=== PATIENT | female | born 1995 | race Caucasian/White ===

== ENCOUNTER → 2017-11-18 16:37 | Outpatient (CLI) | payer SELFPAY ==
[2017-11-18 17:40] LABS: Hematocrit 40.5 % (37-47); Hemoglobin 13.7 g/dl (12.0-15.0); Mean Corp Hgb Conc 33.8 g/gl (32-36); Mean Corpuscular Hgb 30.3 pg (27.0-32.0); Mean Corpuscular Volume 89.6 fL (81-99); Mean Platelet Vol. 10.8 fl (6.2-12.0); Platelet Count 252 K/mm3 (150-450); RBC Distribution Width CV 12.2 % (11.6-14.6); RBC Distribution Width SD 39.9 fl (35.1-43.9); Red Blood Count 4.52 M/mm3 (4.2-5.4); Scan Indicated on CBC? Y/N NO; White Blood Count 4.2 K/mm3 (4.4-11.0)
[2017-11-18 18:06] LABS: ALB/GLOB Ratio 1.2 RATIO (0.9-2.4); AST(SGOT) 15 U/L (15-37); Alanine Aminotransfer ALT/SGPT 18 U/L (13-56); Albumin, Serum 4.3 g/dL (3.2-5.0); Alkaline Phosphatase 107 U/L (45-117); Anion Gap 6 (5-15); BUN 24 mg/dL (7-18); BUN/Creat Ratio 28.4 RATIO (10-20); Calcium,Total 9.2 mg/dL (8.5-10.1); Chloride 106 mmol/L (98-107); Creatinine, Serum 0.85 mg/dL (0.55-1.02); EST Glomerular Filtration Rate 90 mL/min (>60); Est Glom Filt Rate - Afr Amer 108 mL/min (>60); Globulin 3.5 g/dL (2.2-4.2); Glucose 86 mg/dL (74-106); Potassium 3.8 mmol/L (3.5-5.1); Protein, Total 7.8 g/dL (6.4-8.2); Sodium Level 139 mmol/L (136-145)
[2017-11-22 11:28] LABS: KEPPRA (LEVETIRACETAM) 32.7 ug/mL (10.0-40.0)
== END ==
PROVIDERS: Visit Provider Nurse Practitioner Acute Care
DX: G40.909 Epilepsy, unspecified, not intractable, without status epilepticus (principal)
CPT/HCPCS: 36415; 80053; 80177; 85027

== ENCOUNTER → 2018-04-28 16:22 | Outpatient (CLI) | payer SELFPAY ==
[2018-05-05 12:10] LABS: HPV Reflexed? NOT INDICATED
== END ==
PROVIDERS: Visit Provider Obstetrics & Gynecology
DX: Z12.4 Encounter for screening for malignant neoplasm of cervix (principal)
CPT/HCPCS: 88175; G0145

== ENCOUNTER 2018-07-30 20:49 | Emergency (ER) | payer OTHER, SELFPAY ==
[2018-07-30 20:50] VITALS: BP 114/72; PULSE 94; RESP 16; TEMP 36.6; O2SAT 100; BMI 22.4
[2018-07-30] MEDS: Mag Hydrox/Al Hydrox/Simeth 30 ML UDC PO (21:21)
[2018-07-30] MEDS: 0.9% Normal Saline 1,000 ML 1000 ML IV (21:32)
[2018-07-30 21:40] LABS: Bacteria 0 SEEN /hpf (None Seen); Mucous, Urine 0 SEEN /hpf (<or=2+); Red Blood Cells-Urine 0 SEEN /hpf (0-5); White Blood Cells 0 SEEN /hpf (0-5)
[2018-07-30 21:43] LABS: Absolute Lymphocyte Count 1.38 X10^3/ul (0.83-4.51); Absolute Neutrophil Count 3.9 X10^3/uL (2.0-7.7); Basophil# 0.01 X10^3/uL; Basophil% 0.2 % (0-1); Color, Urine Yellow (Yellow); Eosinophil# 0.02 X10^3/uL; Eosinophils% 0.3 % (0-5); Glucose, Dipstick Normal (Normal); Hematocrit 43.8 % (37-47); Hemoglobin 14.7 g/dl (12.0-15.0); Ketone-Dipstick 5 mg/dl (Negative); Leukocyte Esterase-Dipstick Negative /ul (Negative); Lymphocyte # 1.38 X10^3/ul (4.0); Lymphocyte % 23.9 % (19-41); Mean Corp Hgb Conc 33.6 g/gl (32-36); Mean Corpuscular Hgb 29.9 pg (27.0-32.0); Mean Corpuscular Volume 89.2 fL (81-99); Mean Platelet Vol. 9.6 fl (6.2-12.0); Monocyte# 0.43 X10^3/uL; Monocyte% 7.5 % (0-10); Neutrophil # 3.92 X10^3/uL (2.7-7.7); Neutrophil % 67.9 % (47-70); Nitrite-Dipstick Negative (Negative); Occult Blood-Urine Negative /ul (Negative); Platelet Count 272 K/mm3 (150-450); Protein-Dipstick Negative (Negative); RBC Distribution Width CV 12.4 % (11.6-14.6); RBC Distribution Width SD 39.7 fl (35.1-43.9); Red Blood Count 4.91 M/mm3 (4.2-5.4); Specific Gravity, Urine 1.025 (1.002-1.030); Urine Bilirubin Dipstick Negative (Negative); Urine Clarity Clear (Clear); Urine Urobilinogen Normal (Normal); White Blood Count 5.8 K/mm3 (4.4-11.0)
[2018-07-30 21:44] LABS: POSITIVE COUNT NO; POSITIVE DIFFERENTIAL NO; POSITIVE MORPHOLOGY NO
[2018-07-30 21:47] LABS: Internal QC Validated? YES +Cl - CLEAR BKGD; Pregnancy, Urine Negative Negative
[2018-07-30 21:50] LABS: Squamous Epithelial Cells - UA 0-5 SEEN /hpf (5-10)
[2018-07-30 22:00] LABS: ALB/GLOB Ratio 1.1 RATIO (0.9-2.4); AST(SGOT) 29 U/L (15-37); Alanine Aminotransfer ALT/SGPT 64 U/L (13-56); Albumin, Serum 4.4 g/dL (3.2-5.0); Alkaline Phosphatase 114 U/L (45-117); Anion Gap 9 (5-15); BUN 23 mg/dL (7-18); BUN/Creat Ratio 22.5 RATIO (10-20); Calcium,Total 9.6 mg/dL (8.5-10.1); Chloride 105 mmol/L (98-107); Creatinine, Serum 1.02 mg/dL (0.55-1.02); EST Glomerular Filtration Rate 72 mL/min (>60); Est Glom Filt Rate - Afr Amer 87 mL/min (>60); Estimated Creatinine Clearance 71.56 ml/min; Globulin 3.9 g/dL (2.2-4.2); Glucose 84 mg/dL (74-106); Lipase 138 U/L (73-393); Potassium 3.7 mmol/L (3.5-5.1); Protein, Total 8.3 g/dL (6.4-8.2); Sodium Level 141 mmol/L (136-145)
--- NOTE | 2018-07-30 22:14 | ED.DCSUM_ITS ---
- ER Visit Summary Date of Service: 07/30/18 Chief Complaint: Abdominal pain History of Present Illness: The patient is a 23 F presenting for evaluation secondary to abdominal pain. Patient reports over the course last 4 days she has been dealing with abdominal pain. She reports that it mainly is epigastric. It is not necessarily worse by eating, but she has had a decreased appetite. She reports that heating pad did some what alleviated. She denies any presence of fevers. She endorses some nausea no vomiting, as well as some loose stools associated with this. She denies any melena. Patient denies any urinary signs or symptoms. Last menstrual cycle was on 18 July. She is never had any p rior similar episodes in the past, she denies any frequent alcohol use, or frequent NSAID use. Review of systems otherwise negative. Physical Examination: Vital signs are within normal limits, patient is afebrile. General: Patient is well-nourished well-developed and in no acute distress. Head: Normocephalic, atraumatic Eyes: Pupils equal round and reactive bilaterally, extra occular motion intact bialterally ENT: Moist mucous membranes Neck: Supple, no lymphadenopathy, no JVD, no meningismus CVS: Heart regular rate and rhythm, no murmurs, rubs or gallops, radial pulses 2+ bilaterally Resp: Respirations nondistressed, lung sounds clear bilaterally Abdomen: Soft, epigastric tenderness to palpation no guarding no rebound, nondistended, no palpable masses, normal bowel sounds Back: Nontender Extremities: Nontender, atraumatic, active full range of motion, no peripheral edema Skin: warm, no rashes, no petechia Neuro: Alert and oriented x 4, CN 2-12 intact, no lateralizing neurological defecits Psyc: Normal affect Test Results: CBC, CMP, lipase, urinalysis and hCG to be unremarkable. Emergency Department Course and Treatment: Patient presented with epigastric pain. She has normal vital signs and relatively benign exam. Workup rules out to the likelihood of pancreatitis, cholecystitis, and patient's physical exam does not seem consistent with perforated ulcer. She was given a GI cocktail and had some dramatic improvement. At this point patient's presentation is likely consistent with gastritis versus ulcer. She will be placed on a course of omeprazole and Carafate and will be instructed to follow-up with primary care. Disposition: Discharge Impression: 1. Gastritis This note was generated with [employer] dictation software. It may contain incorrect words, spelling, and punctuation that were not noted in review of the chart prior to signing ED Disposition - Plan for ED Patient: Disposition: Home or Assisted Living Chief Complaint: Abd Pain Diagnosis: Gastritis Instructions: ED PUD Vs Gastritis Prescriptions: Esomeprazole Mag Trihydrate [Nexium] 40 mg PO DAILY #30 cap Sucralfate [Carafate] 1 gm PO 4X/DAY #120 tab Referrals: Parish Abel DO [NON CLINICAL AFFILIATE] - 1-2 Weeks
[2018-07-30 22:52] VITALS: PULSE 90; RESP 15; O2SAT 99
== END 2018-07-30 22:53 | disposition home or self-care (01) ==
PROVIDERS: Emergency Provider Emergency Medicine
DX: K29.70 Gastritis, unspecified, without bleeding (principal); G40.909 Epilepsy, unspecified, not intractable, without status epilepticus; J45.909 Unspecified asthma, uncomplicated; Z79.899 Other long term (current) drug therapy
CPT/HCPCS: 80053; 81001; 81025; 83690; 85025; 96360; 99284; J7030; A4216

== ENCOUNTER → 2018-11-01 15:18 | Outpatient (CLI) | payer OTHER, SELFPAY ==
[2018-11-01 17:30] LABS: Chlamydia Trachomatis by PCR Negative (Negative); Neisserai gonorrhoeae by PCR Negative (Negative)
[2018-11-01 17:31] LABS: Probe Check PASS; Sample Adequacy Control PASS; Specimen Processing Control PASS
== END ==
LOC: LABSPEC 15:19
PROVIDERS: Visit Provider Obstetrics & Gynecology
DX: Z11.3 Encounter for screening for infections with a predominantly sexual mode of transmission (principal)
CPT/HCPCS: 87491; 87591

== ENCOUNTER 2018-11-07 19:19 | Emergency (ER) | payer SELFPAY ==
[2018-11-07 19:21] VITALS: BP 110/60; PULSE 88; RESP 18; TEMP 36.8; O2SAT 100; BMI 22.7
--- NOTE | 2018-11-07 19:33 | ED.VISSUMM ---
- ER Visit Summary Date of Service: 11/07/18 Chief Complaint: Nausea vomiting History of Present Illness: The patient is a 23 F with nausea and vomiting since early this morning. She is 7 weeks . She has not had any medications for home. She has no fever or chills. She has no diarrhea or constipation. She has no vaginal bleeding. She has no abdominal pain or back pain. Physical Examination: Patient does not appear in significant distress she appears nontoxic. She has lightly dry mucous membranes. She has clear lungs bilaterally soft and nontender abdomen no CVA tenderness. She has normal skin examination Emergency Department Course and Treatment: 1 L LR, 1 L D5 half-normal saline, Phenergan and Benadryl were given. Urinalysis and basic metabolic panel were obtained. When patient improves we will discharge with prescription for Phenergan. She is told to follow-up with her [employer] doctor Disposition: Discharge stable condition Impression: [Hyperemesis gravidarum] This note was generated with [employer] dictation software. It may contain incorrect words, spelling, and punctuation that were not noted in review of the chart prior to signing ED Disposition - Plan for ED Patient: Disposition: Home or Assisted Living Instructions: ED Nausea Vomiting Prescriptions: Promethazine HCl 12.5 mg PO BID PRN #20 tab PRN Reason: Nausea Referrals: Ginny Frazier MD [STAFF PHYSICIAN] - 2 Days
--- NOTE | 2018-11-07 19:36 | ED.DCSUM_ITS ---
- ER Visit Summary Date of Service: 11/07/18 Chief Complaint: Nausea vomiting History of Present Illness: The patient is a 23 F with nausea and vomiting since early this morning. She is 7 weeks . She has not had any medications for home. She has no fever or chills. She has no diarrhea or constipation. She has no vaginal bleeding. She has no abdominal pain or back pain. Physical Examination: Patient does not appear in significant distress she appears nontoxic. She has lightly dry mucous membranes. She has clear lungs bilaterally soft and nontender abdomen no CVA tenderness. She has normal skin examination Emergency Department Course and Treatment: 1 L LR, 1 L D5 half-normal saline, Phenergan and Benadryl were given. Urinalysis and basic metabolic panel were obtained. When patient improves we will discharge with prescription for Phenergan. She is told to follow-up with her [employer] doctor Disposition: Discharge stable condition Impression: [Hyperemesis gravidarum] This note was generated with [employer] dictation software. It may contain incorrect words, spelling, and punctuation that were not noted in review of the chart prior to signing ED Disposition - Plan for ED Patient: Disposition: Home or Assisted Living Instructions: ED Nausea Vomiting Prescriptions: Promethazine HCl 12.5 mg PO BID PRN #20 tab PRN Reason: Nausea Referrals: Ginny Frazier MD [STAFF PHYSICIAN] - 2 Days
[2018-11-07 19:40] VITALS: BP 111/60; PULSE 71; RESP 18; O2SAT 100
[2018-11-07] MEDS: proMETHazine 25 MG/ML Syringe 12.5 MG IV (19:46)
[2018-11-07] MEDS: Lactated Ringers 1,000 ML 999 ML IV (19:46)
[2018-11-07] MEDS: DiphenhydrAMINE 50 MG/ML Syringe 25 MG IV (19:47)
[2018-11-07 20:03] LABS: Anion Gap 2 (5-15); BUN 10 mg/dL (7-18); BUN/Creat Ratio 14.8 RATIO (10-20); Calcium,Total 8.3 mg/dL (8.5-10.1); Chloride 109 mmol/L (98-107); Creatinine, Serum 0.68 mg/dL (0.55-1.02); EST Glomerular Filtration Rate 115 mL/min (>60); Est Glom Filt Rate - Afr Amer 139 mL/min (>60); Estimated Creatinine Clearance 107.35 ml/min; Glucose 89 mg/dL (74-106); Potassium 3.7 mmol/L (3.5-5.1); Sodium Level 133 mmol/L (136-145)
[2018-11-07 20:05] LABS: Mucous, Urine 0 SEEN /hpf (<or=2+); Red Blood Cells-Urine 0 SEEN /hpf (0-5); White Blood Cells 0 SEEN /hpf (0-5)
[2018-11-07 20:13] LABS: Glucose, Dipstick Normal (Normal); Ketone-Dipstick 50 mg/dl (Negative); Leukocyte Esterase-Dipstick Negative /ul (Negative); Nitrite-Dipstick Negative (Negative); Occult Blood-Urine Negative /ul (Negative); Protein-Dipstick 15 mg/dl (Negative); Specific Gravity, Urine 1.015 (1.002-1.030); Urine Bilirubin Dipstick Negative (Negative); Urine Urobilinogen Normal (Normal)
[2018-11-07 20:39] LABS: Color, Urine Yellow (Yellow); Urine Clarity Sl Cldy (Clear)
[2018-11-07 20:45] LABS: Bacteria RARE /hpf (None Seen); Squamous Epithelial Cells - UA 0-5 SEEN /hpf (5-10)
[2018-11-07] MEDS: Ondansetron 4 MG/2 ML Vial IV (21:07)
[2018-11-07] MEDS: Dext 5%-0.45% NS 1,000 ML 9999 ML IV (21:29)
[2018-11-07 21:35] VITALS: RESP 16
== END 2018-11-07 23:09 | disposition home or self-care (01) ==
PROVIDERS: Emergency Provider Emergency Medicine
DX: O21.0 Mild hyperemesis gravidarum (principal); O99.351 Diseases of the nervous system complicating pregnancy, first trimester; G40.909 Epilepsy, unspecified, not intractable, without status epilepticus; Z79.899 Other long term (current) drug therapy; Z3A.01 Less than 8 weeks gestation of pregnancy
CPT/HCPCS: 80048; 81001; 96361; 96365; 96366; 96375; 99284; J7120; A4216; J2405; J7799

== ENCOUNTER → 2019-02-08 | Outpatient (CLI) | payer OTHER, SELFPAY ==
[2019-02-08 12:38] LABS: Absolute Lymphocyte Count 0.92 X10^3/ul (0.83-4.51); Absolute Neutrophil Count 5.2 X10^3/uL (2.0-7.7); Basophil# 0.01 X10^3/uL; Basophil% 0.2 % (0-1); Eosinophil# 0.02 X10^3/uL; Eosinophils% 0.3 % (0-5); Hematocrit 36.4 % (37-47); Hemoglobin 12.3 g/dl (12.0-15.0); Lymphocyte # 0.92 X10^3/ul (4.0); Mean Corp Hgb Conc 33.8 g/gl (32-36); Mean Corpuscular Volume 88.8 fL (81-99); Mean Platelet Vol. 10.5 fl (6.2-12.0); Monocyte# 0.46 X10^3/uL; Neutrophil # 5.16 X10^3/uL (2.7-7.7); Neutrophil % 78.2 % (47-70); Platelet Count 218 K/mm3 (150-450); RBC Distribution Width SD 41.2 fl (35.1-43.9); White Blood Count 6.6 K/mm3 (4.4-11.0)
[2019-02-08 12:45] LABS: POSITIVE COUNT NO; POSITIVE DIFFERENTIAL NO; POSITIVE MORPHOLOGY NO
[2019-02-08 13:04] LABS: Thyroid Stim Hormone (TSH) 1.78 uIU/mL (0.358-3.74)
[2019-02-08 13:41] LABS: HIV - WCH Non-Reactive (Nonreactive); Rubella IgG 140.1 IU/mL
[2019-02-08 14:12] LABS: Color, Urine Yellow (Yellow); Glucose, Dipstick Normal (Normal); Ketone-Dipstick Negative (Negative); Leukocyte Esterase-Dipstick Negative /ul (Negative); Nitrite-Dipstick Negative (Negative); Occult Blood-Urine Negative /ul (Negative); Protein-Dipstick Negative (Negative); Urine Bilirubin Dipstick Negative (Negative); Urine Clarity Clear (Clear); Urine Urobilinogen Normal (Normal)
[2019-02-08 14:28] LABS: Amphetamine Urine VISTA NEGATIVE (<1000 ng/mL); Barbiturate Urine VISTA NEGATIVE (< 200 ng/mL); Benzodiazepine Urine VISTA NEGATIVE (< 200 ng/mL); Cocaine Urine VISTA NEGATIVE (< 300 ng/mL); Ecstacy Urine VISTA NEGATIVE (< 500 ng/mL); Methadone Urine VISTA NEGATIVE (< 300 ng/mL); PCP Urine VISTA NEGATIVE (< 25 ng/mL); THC Urine VISTA NEGATIVE (< 50 ng/mL); Vista UDS pH Range 7
[2019-02-11 02:31] LABS: Prenatal RPR NONREACTIVE (NONREACTIVE)
[2019-02-14 11:13] LABS: HEPATITIS B SURFACE AG Negative (Negative); Hep C Antibodies <0.1 s/co ratio (0.0-0.9); KEPPRA (LEVETIRACETAM) 9.7 ug/mL (10.0-40.0); V-Zoster IgG (Immunity) 767 index (Immune >165)
== END | disposition home or self-care (01) ==
LOC: WOBLAB 11:04
PROVIDERS: Visit Provider Obstetrics & Gynecology
DX: Z34.82 Encounter for supervision of other normal pregnancy, second trimester (principal)
CPT/HCPCS: 36415; 80177; 80307; 81002; 84443; 85025; 86703; 86762; 86787; 86803; 87340

== ENCOUNTER → 2019-03-16 11:12 | Outpatient (CLI) | payer OTHER, SELFPAY ==
[2019-03-16 12:13] LABS: ALB/GLOB Ratio 0.8 RATIO (0.9-2.4); AST(SGOT) 15 U/L (15-37); Alanine Aminotransfer ALT/SGPT 15 U/L (13-56); Albumin, Serum 3.2 g/dL (3.2-5.0); Alkaline Phosphatase 66 U/L (45-117); Anion Gap 4 (5-15); BUN 10 mg/dL (7-18); BUN/Creat Ratio 13.3 RATIO (10-20); Calcium,Total 9.2 mg/dL (8.5-10.1); Chloride 106 mmol/L (98-107); Creatinine, Serum 0.75 mg/dL (0.55-1.02); EST Glomerular Filtration Rate 102 mL/min (>60); Est Glom Filt Rate - Afr Amer 123 mL/min (>60); Glucose 73 mg/dL (74-106); Potassium 3.9 mmol/L (3.5-5.1); Protein, Total 7.2 g/dL (6.4-8.2); Sodium Level 137 mmol/L (136-145)
[2019-03-20 17:03] LABS: KEPPRA (LEVETIRACETAM) 7.5 ug/mL (10.0-40.0)
== END ==
PROVIDERS: Referring Provider Nurse Practitioner Family; Visit Provider Nurse Practitioner Family
DX: G40.909 Epilepsy, unspecified, not intractable, without status epilepticus (principal)
CPT/HCPCS: 36415; 80053; 80177

== ENCOUNTER → 2019-04-05 08:32 | Outpatient (CLI) | payer MEDICAID, SELFPAY ==
[2019-04-05 10:46] LABS: Hematocrit 33.4 % (37-47); Hemoglobin 11.2 g/dL (12.0-15.0); Mean Corp Hgb Conc 33.5 g/dL (32-36); Mean Corpuscular Hgb 31.4 pg (27.0-32.0); Mean Corpuscular Volume 93.6 fL (81-99); Mean Platelet Vol. 10.4 fl (6.2-12.0); Platelet Count 216 K/mm3 (150-450); RBC Distribution Width CV 12.6 % (11.6-14.6); RBC Distribution Width SD 43.5 fl (35.1-43.9); Red Blood Count 3.57 M/mm3 (4.2-5.4); White Blood Count 7.2 K/mm3 (4.4-11.0)
[2019-04-05 10:48] LABS: Glucose Challenge Gest 1H 50g 77 mg/dL (70-140)
[2019-04-08 13:28] LABS: KEPPRA (LEVETIRACETAM) 8.6 ug/mL (10.0-40.0)
== END ==
PROVIDERS: Visit Provider Obstetrics & Gynecology
DX: O99.353 Diseases of the nervous system complicating pregnancy, third trimester (principal); G40.909 Epilepsy, unspecified, not intractable, without status epilepticus; Z3A.00 Weeks of gestation of pregnancy not specified
CPT/HCPCS: 36415; 80177; 82950; 85027

== ENCOUNTER → 2019-04-12 12:59 | Outpatient (CLI) | payer MEDICAID, SELFPAY ==
[2019-04-12 14:06] LABS: ALB/GLOB Ratio 0.7 RATIO (0.9-2.4); AST(SGOT) 13 U/L (15-37); Alanine Aminotransfer ALT/SGPT 16 U/L (13-56); Alkaline Phosphatase 88 U/L (45-117); Anion Gap 4 (5-15); BUN 12 mg/dL (7-18); BUN/Creat Ratio 16.7 RATIO (10-20); Calcium,Total 8.6 mg/dL (8.5-10.1); Chloride 108 mmol/L (98-107); Creatinine, Serum 0.72 mg/dL (0.55-1.02); EST Glomerular Filtration Rate 107 mL/min (>60); Est Glom Filt Rate - Afr Amer 129 mL/min (>60); Globulin 4.2 g/dL (2.2-4.2); Glucose 85 mg/dL (74-106); Potassium 3.8 mmol/L (3.5-5.1); Protein, Total 7.2 g/dL (6.4-8.2); Sodium Level 138 mmol/L (136-145)
[2019-04-14 14:10] LABS: KEPPRA (LEVETIRACETAM) 20.3 ug/mL (10.0-40.0)
== END ==
PROVIDERS: Referring Provider Nurse Practitioner Family; Visit Provider Nurse Practitioner Family
DX: R56.9 Unspecified convulsions (principal)
CPT/HCPCS: 36415; 80053; 80177

== ENCOUNTER → 2019-05-19 10:34 | Outpatient (CLI) | payer MEDICAID, SELFPAY ==
[2019-05-19 11:49] LABS: ALB/GLOB Ratio 0.7 RATIO (0.9-2.4); AST(SGOT) 17 U/L (15-37); Alanine Aminotransfer ALT/SGPT 15 U/L (13-56); Albumin, Serum 2.7 g/dL (3.2-5.0); Alkaline Phosphatase 111 U/L (45-117); Anion Gap 7 (5-15); BUN 13 mg/dL (7-18); BUN/Creat Ratio 17.4 RATIO (10-20); Calcium,Total 9.3 mg/dL (8.5-10.1); Chloride 106 mmol/L (98-107); Creatinine, Serum 0.75 mg/dL (0.55-1.02); EST Glomerular Filtration Rate 102 mL/min (>60); Est Glom Filt Rate - Afr Amer 124 mL/min (>60); Glucose 69 mg/dL (74-106); Potassium 3.8 mmol/L (3.5-5.1); Protein, Total 6.7 g/dL (6.4-8.2); Sodium Level 141 mmol/L (136-145)
[2019-05-22 13:28] LABS: KEPPRA (LEVETIRACETAM) 8.3 ug/mL (10.0-40.0)
== END ==
PROVIDERS: Referring Provider Nurse Practitioner Family; Visit Provider Nurse Practitioner Family
DX: G40.B09 Juvenile myoclonic epilepsy, not intractable, without status epilepticus (principal)
CPT/HCPCS: 36415; 80053; 80177

== ENCOUNTER → 2019-06-02 11:07 | Outpatient (CLI) | payer MEDICAID, SELFPAY | PROVIDERS: Visit Provider Obstetrics & Gynecology | DX: Z36.85 Encounter for antenatal screening for Streptococcus B (principal) | CPT/HCPCS: 87081 ==

== ENCOUNTER → 2019-06-16 09:58 | Outpatient (CLI) | payer MEDICAID, SELFPAY ==
[2019-06-16 11:02] LABS: ALB/GLOB Ratio 0.7 RATIO (0.9-2.4); AST(SGOT) 18 U/L (15-37); Alanine Aminotransfer ALT/SGPT 20 U/L (13-56); Albumin, Serum 2.7 g/dL (3.2-5.0); Alkaline Phosphatase 140 U/L (45-117); Anion Gap 6 (5-15); BUN 11 mg/dL (7-18); BUN/Creat Ratio 13.6 RATIO (10-20); Chloride 106 mmol/L (98-107); Creatinine, Serum 0.81 mg/dL (0.55-1.02); EST Glomerular Filtration Rate 93 mL/min (>60); Est Glom Filt Rate - Afr Amer 112 mL/min (>60); Glucose 74 mg/dL (74-106); Potassium 3.9 mmol/L (3.5-5.1); Protein, Total 6.7 g/dL (6.4-8.2); Sodium Level 138 mmol/L (136-145)
[2019-06-20 10:34] LABS: KEPPRA (LEVETIRACETAM) 5.9 ug/mL (10.0-40.0)
== END ==
PROVIDERS: Referring Provider Nurse Practitioner Family; Visit Provider Nurse Practitioner Family
DX: R56.9 Unspecified convulsions (principal)
CPT/HCPCS: 36415; 80053; 80177

== ENCOUNTER 2019-06-28 09:00 | Inpatient (IN) | payer MEDICAID, SELFPAY ==
[2019-06-27 22:21] VITALS: BMI 29.2
[2019-06-27] MEDS: Lactated Ringers 1,000 ML 999 ML IV (22:30)
[2019-06-27 22:58] LABS: Absolute Lymphocyte Count 1.69 X10^3/uL (0.83-4.51); Absolute Neutrophil Count 7.7 X10^3/uL (2.0-7.7); Basophil# 0.03 X10^3/uL; Basophil% 0.3 % (0-1); Eosinophil# 0.02 X10^3/uL; Eosinophils% 0.2 % (0-5); Hematocrit 36.7 % (37-47); Hemoglobin 12.6 g/dL (12.0-15.0); Lymphocyte # 1.69 X10^3/ul (4.0); Lymphocyte % 16.7 % (19-41); Mean Corp Hgb Conc 34.3 g/dL (32-36); Mean Corpuscular Hgb 31.2 pg (27.0-32.0); Mean Corpuscular Volume 90.8 fL (81-99); Mean Platelet Vol. 10.9 fl (6.2-12.0); Monocyte# 0.63 X10^3/uL; Monocyte% 6.2 % (0-10); NRBC Flagged by Analyzer 0 % (0-5); Neutrophil # 7.71 X10^3/uL (2.7-7.7); Neutrophil % 76.1 % (47-70); Platelet Count 236 K/mm3 (150-450); RBC Distribution Width CV 12.6 % (11.6-14.6); RBC Distribution Width SD 41.6 fl (35.1-43.9); Red Blood Count 4.04 M/mm3 (4.2-5.4); White Blood Count 10.1 K/mm3 (4.4-11.0)
[2019-06-27] MEDS: levETIRAcetam 1,000 MG Tablet 1000 MG PO (23:13)
[2019-06-28] VITALS (12 sets, daily range): BP systolic 112–136; BP diastolic 64–87; PULSE 58–84; RESP 14–18; TEMP 36.7–37.7; O2SAT 96–98
[2019-06-28] MEDS: Nalbuphine 10 MG/ML Ampul IV (05:45)
--- NOTE | 2019-06-28 07:26 | HP.PCM_ITS ---
History and Physical Date of Admission: 06/28/19 [facility] [place] ANTEPART[place] REC[place] - HISTORY AND PHYSICAL (06/28/2019) Name: GRETA DELANEY OB Physician: NAVID Williston's Physician: UNDECIDED ...................................................................... : 1995 Age: 24 Address: [address] [place] [address] Phone: H) [phone] ([phone] [id number] Emergency Contact: NUNO DELANEY [phone] ...................................................................... Greta is a 24yo at 40w4d gestation by L=8w3d US. She has a history of epilepsy diagnosed at age 18, has not had a seizure since 2012, and has been seeing a neurologist regularly for monitoring and adjustment of her dose of Keppra. She presented last evening c/o contractions that had been occurring every 15-20 minutes over the weekend, but had increased in intensity and frequency to about every 5 minutes about 1900. Shortly after arrival a prolonged deceleration was noted, and so she was kept overnight for observation; since that time FHTs have been Category 1, and she has continued to contract uncomfortably with no cervical change. Patient and her have taken office CBE classes. They would like as minimal intervention as possible, but patient is exhausted at this time; after discussion with RN and presenting options to patient and spouse via RN, she has decided to accept a dose of nubain and attempt to sleep, after which we will again revaluate and make a decision as to how patient prefers to proceed with her labor. Final GLO: 06/24/19 By Ultrasound: PARITY: (G-Total Pregnancies P-Fullterm,Premature,Induced AB,Spont AB, Ectopics, Multiple,Living) GLO CONFIRMATION: By LMP: 09/17/18 Final GLO: 06/24/19 BLOOD TYPE: AFP: 1 HR PG: GBS: Original Ordering Provider: Ginny KHAN Culture Group B Beta Streptococcus is not isolated. Rublla titer (>10 immune)-- Hepatatis B nichol AG-- CULTURES:-- OB PROBLEM LIST: Please enc office Childbirth and classes. ALLERGIC TO BIAXIN. Decline AFP and CF tests. Epilepsy Keppra. Folic acid 1 mg daily. Encourage epidural. Inc risk of seizures in peripartum (3d around delivery) . First trimester N/V requiring IV fluids at hospital. Zofran RX given by ED (written) and she had that filled. wants to hand baby to his after delivery of shoulders. Hand baby to if all OK. WANTS DELAYED CORD CLAMPING CONSIDERING NO EPIDURAL Wants natural . Z: Midwives for delivery and office ALLERGIES: biaxin Rash NKDA MEDICATIONS: albuterol sulfate 0.63 mg/3 mL solution for nebulization prn folic acid 1 mg tablet daily Keppra 1,000 mg tablet bid Formula-DHA 28 mg-800 mcg- 200 mg capsule 1 PO QD SOCIAL HISTORY: Smoking - Never Alcohol Use - occasionally not while Diet - balanced Diet, caffeine < 2 drinks per day and Water intake 40 oz plus. Lifestyle - active lifestyle Exercise - active work and Enc to walk 20 min daily. 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 Spouse-Sig Other Phone No - [phone] PRIOR DELIVERY HISTORY DEL DATE GEST LAB WT LB WT OZ TYPE ANES LABOR TX ANTEPARTUM FLOW CHART VISIT GE RTC FU F F AL U U DATE WK MD WKS HT PN HR M SS BP ED WT AL GL D EF ST __ ____ ___ __ __ ___ __ __ __ ___ __ __ __ ___ __ 30 Oct 39 ELB 1 39 V + + 128/74 sl 168 - - 1 20 -3 24 Oct 38 JMW 1 39 V + + 124/82 sl 168 tr - ft TH hi 17 Oct 37 ELB 1 36 V + + 114/68 sl 163 tr - 10 Oct 36 ELB 1 36 V + + 110/70 0 161 tr - _ 26 Sep 34 ELB 2 34 - + + 106/74 0 158 tr - 11 Sep 32 ELB 2 31 - + + 110/62 0 153 tr - 27 Mar 30 SHM 2 30 V + + 104/62 0 152 tr - 13 Apr 20 ELB 2 28 - + + 120/70 0 152 tr - 16 Isaiah 24 ELB 4 23 - + + 98/72 0 147 - - 18 Michael 20 DS 4 20 ? + + 90/70 0 140 - - 07 December 14 ELB 4 - - + O 90/62 0 134 - - Nov 30 ELB 4 - - U+ O 90/60 0 128 tr - ANTEPARTUM NOTE(S): Jun 22 2019: inc in jez due to low levels, reviewed FM Jun 16 2019: Ctxs-mild, Good FM, Jun 09 2019: declines cervix check Jun 02 2019: GBS today, declines LARC May 19 2019: has had a wolfe since yesterday. May 04 2019: doing ok, reviewed FM, PTL Apr 19 2019: see note Apr 05 2019: see note Mar 08 2019: feeling well. Glucola given. Feb 08 2019: feeling well. Dec 28 2018: feeling well. Still waiting to hear back about insurance. Nov 22 2018: nausea and vomiting this weekend. COMPREHENSIVE ANTEPARTUM NOTE(S): Jun 22 2019: (?*) Reporting +FM, educated on doing kick counts if feeling less movement. States after laying down was able to feel movement well. Has been drinking RRLT 2-4 times a day and feels like it is helping. SVE 09/12/-3, becomi ng soft since last week. Has been walking and bouncing on the ball at home. Does not wished to have membrane sweeping todfay as wanting body to naturally go into labor. Will see in 1 weeks for routine PNV. If ROM, regular UC, bleeding or decreased FM occurs will report to LD or call. Has no questions or concerns. Met KW CNM today as well, wishes midwifery . - Jun 16 2019: (?*) 38w6d +FM, +FHR 138, Reports no ROM, regular contractions or concerns. Would like to avoid medical induction, given list of recommendations for walking, intercourse, EPOO, RRL tea, dates. Cervix closed high thick. Would prefer midwives for delivery for natural and to catch. Will return in one week. Reviewed recautions for labor and when to call. - Jun 09 2019: Spouse wants to help catch baby. Wants no epidural. Wants to delay cord clamping. Encouraged to keep options open and if meconium will clamp cord and hand baby to steam oven operator rather than delay cord clamping... Especially if baby not vigorous. Spouse would like to hand baby to maternal abdomen. They do expect us to deliver shoulders. Will get breast pump at [facility]. RTO in 1 wk GBS negative. EB Jun 06 2019: H taken to OB. tkg Jun 05 2019: GBS negative. EB Jun 02 2019: Declined TdaP and no plans for flu shot. GBS today and exam. Reviewed s/sx of labor Declined cervix check. EB May 19 2019: Reviewed labor and delivery. Options for pain control. s/sx of labor. When to go to hospital. where to go. Advised induction if 41-42 wks. She is asking about what shots her baby will be getting. Advised re Vit K and eye ointment. May discusss other with steam oven operator in hospital and outpt. EB Apr 19 2019: Decreased appetite and concerned with position. Advised decreased appetite is normal. Try small, frequent meals. Concerned with position. Adviised may still change but can discuss further with Dr MURPHY. FM reviewed. LMT Apr 19 2019: PTL, FM precautions. Discussed screen, Hep B vaccination, Vitamin K supplementation and abx eye ointment. Apr 05 2019: Asking when next sono is to be done. DIscussed some of her hopes for labor: Hoping no epidurall. natural . (vaginsmus hx). Wants delayed cord clamping. Advised that she should keep options open re plan. Sometimes does not go according to plan. Will continue to discuss plan at future visits. 28 wk labs done. Had a pain around belly button which resolved on its own. RTO in 2 wk for PNV. Sono to be done if medical indication 20 wk wono WNL Cyst noted one ovary and may elect to try to follow up on this. EB Hgb 11.2 g/dl Glucola 77. Informed by phone as anxious. EB Mar 08 2019: Reviewed NOB labs done at last visit. States neurologist kept Keppra at current dose, level 9.7 (normal lower limit 10) as she has not had any sx. Immune to chickenpox. RI. A positive. Doing well. Did not find out gender. EB Feb 08 2019: NOB labs done today. ANatomical US with no anomalies. Normal placentation and umbilical cord. Keppa levels done. Dec 28 2018: NOB labs NOT done yet, Waiting on insurance. Lifts toddlers a lot at work.. She has some back pain at bilateral waist / flank. R or L side. REC: support belt. prn tylenol. Massage or chiropracter. Limit lifting. RTO in 4 wk for PNV. EB Nov 22 2018: GC and chlamydia cultures NEG. NOB vera, NOMikayla nurse and labs today. RTO in 4 wk for PNV. 3# wt loss. N/V this weekend and no po tolerated for two days. States has antiemetic from ED but this is vomited , not tolerating the pill. RX to be sent in for ODT Zofran 4 mg tabs. EB Nov 22 2018: Dinesh are here for NOB nurse visit with GLO 06-24-19 planning a vag del at [facility] uncertain of epidural or doctor for post disch ped care. She does plan to breastfeed. 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 Nuno works for [employer]. The was unplanned but they are pleased about it. Greta is allergic to Biaxin (hives as a child) and has seasonal allergies. She is not allergic to any food or to latex. Her diet is balanced with minimal caffeine and about 40 oz of water daily. She is a lifetime non smoker, drinks alcohol occ but not in pg and denies street drug use past or present. She is active with her job and occ walks. Enc to walk 20 min daily. She usually wears her seatbelt and was reminded to wear it always and very low on her abd. Genetics Screening form completed noting no family issues. Greta is on Keppra for epilepsy, has taken promethazine and is to start Zofran. They decline AFP and CF tests. Warning signs in pg discussed as well as importance of protein in diet, lifting restriction of 25#, otc meds ok to take, reaching the office after hours with understanding voiced. They have a copy of What to Expect. US done today. Routine labs are on hold until next visit as insurance most likely in affect then. They have no cats but she is aware of litter box issues. She is uncertain of chickenpox status. Office Childbirth and Classes suggested. Enc to call if any concerns. Visit lasted approx 50 min. Virgilio HOLCOMB. Nov 01 2018: PT is a 23 yo female, Primip, here today for her missed menses appt. PT LMP was 09/17/2018. PT states her last menses was normal as far as time and duration. PT had a pap test last in April 2018. PT is currently taking PNV's. PT to have GC CT today. PT with dx of epilepsy and asthma. Concerned about medications - Keppra - with and would like to discuss. PT given new bag and information. + UPT in office today. dg REVIEW OF SYSTEMS: GENERAL - Denies fever, or chills SKIN - Denies rash, new skin lesions, or change in moles EYES - Denies blurred vision, or change in visual acuity EARS - Denies ear pain, or difficulty hearing NOSE - Denies nasal congestion, discharge, or bleeding MOUTH - Denies sore throat, or difficulty swallowing NECK - Denies pain or swelling RESPIRATORY - Denies shortness of breath, cough, wheezing CARDIOVASCULAR - Denies palpitations, chest pain, orthopnea, PND, peripheral edema, syncope or claudication GASTROINTESTINAL - Denies nausea, vomiting, diarrhea, constipation, Denies abdominal pain, melena and or bright red blood GENITOURINARY - Denies dysuria, frequency of urination, urgency, or hesitancy MUSCULOSKELETAL - Denies joint or muscle pain, or back pain NEUROLOGICAL - Denies localized numbness, weakness, or tingling PSYCHIATRIC - Denies depression, anxiety, substance abuse or suicide attempts ENDOCRINE - Denies heat or cold intolerance, weight loss or gain, increasing thirst HEMATO-IMMUNOLOGIC - Denies easy bruising, bleeding, oral ulcerations or recurrent infections GENETICS SCREENING: Age 35+ years: No Thalassemia: No Neural Tube Defect: No Down Syndrome: No MARU-SACHS: No Sickle Cell Disease: No Hemophilia: No Musc. Dystrophy: No Cystic Fibrosis: No-declines screening Blake Chorea: No Mental Retardation: No Fragile X: No Other genetic: No Other defects: No SABs/still births: No Drugs since LMP: No INFECTION HISTORY: High risk AIDS: No High risk Hepatitis: No Exposed to TB: No Exposed to Herpes: No Rash/viral illness since LMP: No History of STD: No MENSTRUAL HISTORY: *Menses Amount/Duration: 3 to 5 daysMenses Regularity: RegularFrequency: monthlyMenarche (Age Onset): 13* PAST SUMMARY: PARITY: 1. Total Pregnancies............ 1 2. Full Term Pregnancies........ 0 3. Premature.................... 0 4. Abortions - Induced.......... 0 5. Abortions - Spontaneous...... 0 6. Ectopics..................... 0 7. Multiple Births.............. 0 8. Living Children.............. 0 Labs for : GRETA DELANEY since 09/27/2018 ORDER DATEIN DESCRIPTION VALUE UNITS RANGE A+ COMMENT CULTURE, GROUP B STREPTOCOCCUS 06/02/19 NOTE Original Ordering Provider: Ginny Frazier BILL Culture Group B Beta Streptococcus is not isolated. Reviewed by GINNY OH (LEVETIRACETAM) 04/05/19 NOTE Original Ordering Provider: Ginny OH 8.6 ug/mL 10.0-40.0 L This test was developed and its performance characteristics determined by [facility]. It has not been cleared or approved by the Food and Drug Administration. Performed at: [address] [id number] Size Stamper: Favian Beverly MD, Phone: [phone] Reviewed by MAEGAN Reviewed by GINNY GLUCOSE CHALLENGE GEST 1H 50G 04/05/19 NOTE Original Ordering Provider: Ginny Frazier GLU GEST 50G 1H 77 mg/dL 70-140 Reviewed by GINNY CBC-COMPLETE BLOOD CNT NO DIFF 04/05/19 NOTE Original Ordering Provider: Ginny Frazier WBC 7.2 K/mm3 4.4-11.0 RBC 3.57 M/mm3 4.2-5.4 L HGB 11.2 g/dL 12.0-15.0 L HCT 33.4 % 37-47 L MCV 93.6 fL 81-99 MCH 31.4 pg 27.0-32.0 MCHC 33.5 g/dL 32-36 RDW CV 12.6 % 11.6-14.6 RDW SD 43.5 fl 35.1-43.9 PLT 216 K/mm3 150-450 MPV 10.4 fl 6.2-12.0 Reviewed by GINNY V-ZOSTER IGG (IMMUNITY) 02/08/19 NOTE Original Ordering Provider: Lona Contreras VZOST IGG [id number] index Immune >165 Negative <135 Equivocal 135 - 165 Positive >165 A positive result generally indicates exposure to the pathogen or administration of specific immunoglobulins, but it is not indication of active infection or stage of disease. Reviewed by GINNY OH (LEVETIRACETAM) 02/08/19 NOTE Original Ordering Provider: Lona OH 9.7 ug/mL 10.0-40.0 L This test was developed and its performance characteristics determined by [facility]. It has not been cleared or approved by the Food and Drug Administration. Reviewed by GINNY HEPATITIS C ANTIBODIES 02/08/19 NOTE Original Ordering Provider: Lona Contreras HEP C AB <0.1 s/co ratio 0.0-0.9 Negative: < 0.8 Indeterminate: 0.8 - 0.9 Positive: > 0.9 The CDC recommends that a positive HCV antibody result be followed up with a HCV Nucleic Acid Amplification test (644724). Reviewed by GINNY HEPATITIS B SURFACE AG 02/08/19 NOTE Original Ordering Provider: Lona Contreras HB SURF AG Negative Negative Performed at: [facility] [id number] Size Stamper: Agustín Gibbs PhD, Phone: [phone] Performed at: [facility] [address] [id number] Size Stamper: Favian Beverly MD, Phone: [phone] Reviewed by GINNY RPR 02/08/19 NOTE Original Ordering Provider: Lona Contreras RPR NONREACTIVE NONREACTIVE Reviewed by LONA DE LA PAZ T AND S-NO CHARGE W/PNP 02/08/19 Reason for Type AND Screen/Red Cells: Surgery? N [facility]~[address] [place], [address]~ BLOOD TYPE GEL A POSITIVE N AB SCREEN GEL NEGATIVE N Reviewed by DARIN URINE DRUG SCREEN (VISTA) 02/08/19 NOTE Original Ordering Provider: Lona Contreras TO BE CONFIRMED CONFIRMATORY TESTING FOR ALL POSITIVE URINE DRUG SCREEN RESULTS WILL ONLY BE SENT OUT UPON PHYSICIAN ORDER. VISTA Urine Drug Screen methods provide only preliminary analytical test results. A more specific alternate chemical method must be used in order to obtain a confirmed analytical result. Gas chromatography/mass spectrometery (GC/MS) is the preferred confirmatory method. Clinical consideration and professional judgement should be applied to any drug of abuse test result, particularly when preliminary positive results are used. URINE TCA TESTING MUST BE ORDERED SEPARATELY. USE TEST MNEMONIC: [facility]IST[facility] UDS PH 7 AMPHETAMINES NEGATIVE <1000 ng/mL BARBITIURATES NEGATIVE < 200 ng/mL BENZODIAZIPINE NEGATIVE < 200 ng/mL COCAINE NEGATIVE < 300 ng/mL ECSTACY NEGATIVE < 500 ng/mL METHADONE NEGATIVE < 300 ng/mL OPIATES NEGATIVE < 300 ng/mL PCP NEGATIVE < 25 ng/mL THC NEGATIVE < 50 ng/mL Reviewed by DARIN URINALYSIS, ROUTINE (DIPSTICK) 02/08/19 NOTE Original Ordering Provider: Lona Contreras COLOR Yellow Yellow w CLARITY Clear Clear GLUCOSE, UR Normal mg/dl Normal BILIRUBIN URINE Negative mg/dL Negative KETONE UR Negative mg/dl Negative SP.GR. DIPSTX 1.020 1.002-1.030 PH UR 8.0 5.0 - 8.0 PROT DIPSTX Negative mg/dl Negative UROBILI Normal mg/dl Normal NITRITE UR Negative Negative OCCULT BLOOD-UR Negative /ul Negative LEUK ESTERASE Negative /ul Negative w Reviewed by DARIN HIV - H 02/08/19 NOTE Original Ordering Provider: Lona Contreras HIV - [facility] Non-Reactive Nonreactive Reviewed by DARIN RUBELLA IGG 02/08/19 NOTE Original Ordering Provider: Lona Contreras RUBELLA IGG 140.1 IU/mL Antibody results Interpretation of Immune Status < 5 IU/ml Presumed Non-immune 5 - < 10 IU/ml Equivocal > or = 10 IU/ml Presumed Immune Reviewed by DARIN THYROID STIM HORMONE (TSH) 02/08/19 NOTE Original Ordering Provider: Lona Contreras TSH 1.78 uIU/mL 0.358-3.74 Reviewed by DARIN CBC W/DIFF, AUTOMATED 02/08/19 NOTE Original Ordering Provider: Lona Contreras WBC 6.6 K/mm3 4.4-11.0 RBC 4.10 M/mm3 4.2-5.4 L HGB 12.3 g/dl 12.0-15.0 HCT 36.4 % 37-47 L MCV 88.8 fL 81-99 MCH 30.0 pg 27.0-32.0 MCHC 33.8 g/gl 32-36 RDW CV 13.0 % 11.6-14.6 RDW SD 41.2 fl 35.1-43.9 PLT 218 K/mm3 150-450 MPV 10.5 fl 6.2-12.0 NEUT% 78.2 % 47-70 H LY% 14.0 % 19-41 L MONO% 7.0 % 0-10 EO% 0.3 % 0-5 BASO% 0.2 % 0-1 IM GRAN % 0.300 % 0.0-0.9 IG% - Immature Granulocytes (promyelocytes, myelocytes and metamyelocytes) > 1% indicates that a LEFT SHIFT is Present. ABSOLUTE NEUT 5.2 X10 3/uL 2.0-7.7 ABSOLUTE LYMPH 0.92 X10 3/ul 0.83-4.51 Reviewed by DARIN bright Reviewed by DARIN JOHNS/TAD [facility] BY PCR 11/01/18 NOTE Original Ordering Provider: Ginny ANTON [facility] PCR Negative Negative BY PCR Negative Negative Reviewed by KRYSTAL PROVIDER SIGNATURE ( REQUIRED) PHYSICAL EXAMINATION General Appearence: 24 yo female in no acute distress Vital Signs: AF, VSS Heart: RRR without rubs or gallops Lungs: CTA x 2 Breasts: deferred Abdomen: gravid Pelvis: Cervix: 2/85/-3, soft, posterior Presentation: cephalic Fetus: Size: AGA Movement: present Heart: 120 baseline, moderate variability with accels, no decels Contractions: Q5-8 Impression: 24yo at 40w4d gestation by L=8w3d US Early labor GBS negative Cat 1 FHTs Plan: Continue therapeutic rest Continuous EFM,close observation Reevaluate in 2-3 hours
--- NOTE | 2019-06-28 08:43 | PCM.PN.OB ---
Subjective: Drowsy, has been napping, contractions feel more mild and she has been able to doze through them; bedside and supportive Objective: AVSS FHTs: 130 baseline, moderate variability with accels; prolonged deceleration beginning at 0819, chi approx 68bpm at 0820, back to baseline at 0824, variability maintained; LR bolus, O2 10L per FM and position change to H&K initiated; UCs: Q 5-7 Cervix: Unchanged at 2/85/-3, soft, posterior - Physical Exam Vitals/I&O's: Weight: 164 lb 12.8 oz Body Mass Index (BMI) 29.2 Intake and Output for Last 24 Hours 06/26/19 06/27/19 06/28/19 23:59 23:59 23:59 Intake Total 1000 / 1000 Balance 1000 / 1000 General: Oriented x3, Cooperative HEENT: PERRLA, EOMI Oral: Moist Mucosa Neck: Supple Lungs: Clear to auscultation, Normal air movement Cardiovascular: Regular rate, Regular Rhythm Abdomen: Bowel Sounds Present, Soft, Non Tender, Non-Distended, Passing Flatus, Gravid Extremities: Capillary Refill Less than 3 Seconds, No Calf Tenderness Neurological: Cranial nerves II-XII grossly intact, Deep Tendon Reflexes 2+/4 and Symmetrical Psych/Mental Status: Normal Affect, Appropriate, Alert and oriented to time, place, person, mood and affect Laboratory Results 06/27/19 22:30: WBC 10.1, RBC 4.04 L, Hgb 12.6, Hct 36.7 L, MCV 90.8, MCH 31.2, MCHC 34.3, RDW Std Deviation 41.6, RDW Coeff of Koffi 12.6, Plt Count 236, MPV 10.9, Immature Gran % (Auto) 0.500, Neut % (Auto) 76.1 H, Lymph % (Auto) 16.7 L, [place] % (Auto) 6.2, Eos % (Auto) 0.2, Baso % (Auto) 0.3, Absolute Neuts (auto) 7.7, Absolute Lymphs (auto) 1.69, Nucleated RBC % 0 06/27/19 22:30: Blood Type A POSITIVE, Antibody Screen NEGATIVE Current Medications Lactated Ringer's () 1,000 mls @ 50 mls/hr IV .Q20H NIKO Last Admin: 06/28/19 00:00 Dose: 50 mls/hr Documented by: Levetiracetam (Keppra Tablet) 1,000 mg PO BID [facility] Last Admin: 06/27/19 23:13 Dose: 1,000 mg Documented by: Medical Necessity - Tobacco Use Smoking Status: Never smoker Assessment/Plan Assessment: 24yo at 40w4d gestation by L=8w3d US Early labor Cat 2 FHTs Plan: Discussed w/Dr. Frazier Recommended AROM w/internals and amnioinfusion; pt wanting to discuss with spouse Continue close observation, continuous EFM
--- NOTE | 2019-06-28 09:34 | US_ITS ---
STUDY: OBSTETRICAL ULTRASOUND - BIOPHYSICAL PROFILE REASON FOR EXAM: Female, 24 years old well-being. Cord placement. LMP: September 17, 2018. PRIOR ULTRASOUND: None. TECHNIQUE: Transabdominal TECHNICAL QUALITY: Adequate. FINDINGS: There is a single intrauterine fetus. The fetus is in a cephalic presentation. There is demonstrated cardiac activity with a heart rate of 134 bpm. There is a normal amniotic fluid volume. The largest amniotic fluid pocket measures 3.4 cm x 2.2 cm. The amniotic fluid index (YADIRA) is 8.9 cm. The placenta is fundal in location. There are Grade 2 placental changes. Age by LMP: 40 weeks, 4 days. GLO by LMP: June 24, 2019. The umbilical cord appears to be in the nuchal region although it is difficult to assess if it is wrapped completely around the head due to the position. BIOPHYSICAL PROFILE: Breathing Movements (FBM): 0 Gross Body Movements (GBM): 2 Tone (FT): 2 Amniotic Fluid Volume (AFV): 2 TOTAL SCORE: US/Biophysical Prof W/O Non Stres IMPRESSION: biophysical profile of 01/29. Electronically Signed: David Barrett, at 11:15 EST , Service support ,
[2019-06-28] MEDS: Lactated Ringers 1,000 ML 50 ML IV ×2 (09:58)
[2019-06-28] MEDS: levETIRAcetam 1,000 MG Tablet 1000 MG PO ×2 (11:11→23:44)
--- NOTE | 2019-06-28 11:57 | PCM.PN.BLA ---
Progress Note Review Mild, irregular UCs. EFM: 130-140 mostly category I tracing. Several variables, and some prolonged declerations (variable onset / return) since her admission. First -- 5 min decel at 2206 variable onset to 70-80 bpm Intermittent tracing at times overnight ? decel at 0145 Second decel -- at 0819 this am. lasting 5 min to 70-80 bpm Third-- 0850 lasting 2 min to 70-90 bpm Offered AROM internals to augment labor and to better monitor FHR. with amnioinfusion. Declined BPP 6/8 (-2 for no breathing) YADIRA 8.8 cm with possible nuchal cord Continue observation of labor for now. Readdress augmentation if no change of cervix.
--- NOTE | 2019-06-28 12:04 | PCM.PN.OB ---
Subjective: This is a late entry for 0900 Pt breathing through contractions, coping well; declines AROM and internals at this time Objective: AVSS FHTs:120 baseline, moderate variability, with accels; prolonged decel noted at 0851, chi 7bpm, slowly back to baseline by 0855 UCs:Q 6 Cervix: 2/90/-2, soft, mid position - Physical Exam Vitals/I&O's: Weight: 164 lb 12.8 oz Body Mass Index (BMI) 29.2 Intake and Output for Last 24 Hours 06/26/19 06/27/19 06/28/19 23:59 23:59 23:59 Intake Total / Balance / Laboratory Results 06/27/19 22:30: WBC 10.1, RBC 4.04 L, Hgb 12.6, Hct 36.7 L, MCV 90.8, MCH 31.2, MCHC 34.3, RDW Std Deviation 41.6, RDW Coeff of Koffi 12.6, Plt Count 236, MPV 10.9, Immature Gran % (Auto) 0.500, Neut % (Auto) 76.1 H, Lymph % (Auto) 16.7 L, [place] % (Auto) 6.2, Eos % (Auto) 0.2, Baso % (Auto) 0.3, Absolute Neuts (auto) 7.7, Absolute Lymphs (auto) 1.69, Nucleated RBC % 0 06/27/19 22:30: Blood Type A POSITIVE, Antibody Screen NEGATIVE Current Medications Acetaminophen (Tylenol) 325 - 650 mg PO Q4H PRN PRN PRN Reason: Pain Score 1-3/10 Al Hydroxide/Mg Hydroxide (Mylanta Ii) 15 - 30 ml PO Q4H PRN PRN PRN Reason: INDIGESTION Citric Acid/Sodium Citrate (Bicitra) 30 ml PO X1 PRN PRN Reason: Section Lactated Ringer's () 1,000 mls @ 50 mls/hr IV .Q20H [facility] Last Infusion: 06/28/19 11:00 Dose: 0 mls/hr Documented by: Lactated Ringer's () 500 mls @ 999 mls/hr IV .Q31M PRN PRN Reason: Epidural Lactated Ringer's () 500 mls @ 999 mls/hr IV .Q31M PRN PRN Reason: Corrective Measures Levetiracetam (Keppra Tablet) 1,000 mg PO BID [facility] Last Admin: 06/28/19 11:11 Dose: 1,000 mg Documented by: Nalbuphine HCl (Nubain) 5 - 10 mg IV Q3H PRN PRN PRN Reason: Pain Score 4-10/10 Nalbuphine HCl (Nubain) 5 - 10 mg SC Q3H PRN PRN PRN Reason: Pain Score 4-10/10 Ondansetron HCl (Zofran) 4 mg IV Q4H PRN PRN PRN Reason: NAUSEA Prochlorperazine Edisylate (Compazine Iv) 10 mg IV Q6H PRN PRN PRN Reason: NAUSEA Sodium Chloride () 10 - 40 ml IV X1 PRN PRN Reason: SALINE FLUSH Medical Necessity - Tobacco Use Smoking Status: Never smoker Assessment/Plan Assessment: 24yo at 40w4d gestation by L=8w3d Early labor Cat 2 FHTs Plan: Discussed w/Dr. Frazier Pt continues to decline AROM w/internals and amnioinfusion, will accept BPP, BPP ordered Continue close observation, continuous EFM
[2019-06-28] MEDS: Lactated Ringers 500 ML 999 ML IV ×2 (13:30→15:17)
--- NOTE | 2019-06-28 13:51 | PN.OBGYN_ITS ---
Subjective: Feeling more discomfort contractions; had requested AROM, but now prefers epidural prior to AROM; is OK with CNM checking cervix prior to epidural Objective: AVSS Sitting up in rocking chair, breathing, moaning through contractions; standing next to chair, coaching and supportive FHTs: 145 baseline, moderate variability with accels; one isolated variable noted when pt got up to walk to bathroom UCs:Q 2-3 Cervix: 2.5/90/-2, soft, mid position - Physical Exam Vitals/I&O's: Weight: 164 lb 12.8 oz Body Mass Index (BMI) 29.2 Intake and Output for Last 24 Hours 06/26/19 06/27/19 06/28/19 23:59 23:59 23:59 Intake Total Balance General: Alert, Oriented x3, Cooperative Neck: Supple Neurological: Cranial nerves II-XII grossly intact Psych/Mental Status: Normal Affect, Appropriate, Alert and oriented to time, place, person, mood and affect Laboratory Results 06/27/19 22:30: WBC 10.1, RBC 4.04 L, Hgb 12.6, Hct 36.7 L, MCV 90.8, MCH 31.2, MCHC 34.3, RDW Std Deviation 41.6, RDW Coeff of Koffi 12.6, Plt Count 236, MPV 10.9, Immature Gran % (Auto) 0.500, Neut % (Auto) 76.1 H, Lymph % (Auto) 16.7 L, [place] % (Auto) 6.2, Eos % (Auto) 0.2, Baso % (Auto) 0.3, Absolute Neuts (auto) 7.7, Absolute Lymphs (auto) 1.69, Nucleated RBC % 0 06/27/19 22:30: Blood Type A POSITIVE, Antibody Screen NEGATIVE Current Medications Acetaminophen (Tylenol) 325 - 650 mg PO Q4H PRN PRN PRN Reason: Pain Score 1-3/10 Al Hydroxide/Mg Hydroxide (Mylanta Ii) 15 - 30 ml PO Q4H PRN PRN PRN Reason: INDIGESTION Citric Acid/Sodium Citrate (Bicitra) 30 ml PO X1 PRN PRN Reason: Section Lactated Ringer's () 1,000 mls @ 50 mls/hr IV .Q20H [facility] Last Infusion: 06/28/19 11:00 Dose: 0 mls/hr Documented by: Lactated Ringer's () 500 mls @ 999 mls/hr IV .Q31M PRN PRN Reason: Epidural Lactated Ringer's () 500 mls @ 999 mls/hr IV .Q31M PRN PRN Reason: Corrective Measures Levetiracetam (Keppra Tablet) 1,000 mg PO BID [facility] Last Admin: 06/28/19 11:11 Dose: 1,000 mg Documented by: Nalbuphine HCl (Nubain) 5 - 10 mg IV Q3H PRN PRN PRN Reason: Pain Score 4-10/10 Nalbuphine HCl (Nubain) 5 - 10 mg SC Q3H PRN PRN PRN Reason: Pain Score 4-10/10 Ondansetron HCl (Zofran) 4 mg IV Q4H PRN PRN PRN Reason: NAUSEA Prochlorperazine Edisylate (Compazine Iv) 10 mg IV Q6H PRN PRN PRN Reason: NAUSEA Sodium Chloride () 10 - 40 ml IV X1 PRN PRN Reason: SALINE FLUSH Medical Necessity - Tobacco Use Smoking Status: Never smoker Assessment/Plan Assessment: Early labor, minimal progression Maternal exhaustion, limited coping Cat 2 FHTs Plan: Epidural AROM, place internals after epidural per pt preference Continuous EFM, close observation
[2019-06-28] MEDS: fentaNYL-bupivacaine (epidural) 100 ML BAG EPIDURAL (14:18)
[2019-06-28] MEDS: Amnioinfusion- 0.9% NS 1,000 ML IV.SOLN. 200 ML INTRA-UTER (15:27)
--- NOTE | 2019-06-28 15:42 | PN.OBGYN_ITS ---
Subjective: Comfortable with epidural; bedside and supportive; risks, benefits of AROM and internals discussed with patient, pt desires AROM in hopes it will augment labor Objective: AVSS FHTs: 130 baseline, moderate variability, with accels and occasional variables; one deep variable at 1515 immediately after AROM and placing IUPC and FSE, chi 40bpm, back to baseline w/in 1 minute UCs: Q 2-3 per IUPC, 145 [place] units Cervix: 3/60/-2, soft, mid position; small amount clear, blood tinged fluid at AROM - Physical Exam Vitals/I&O's: Weight: 164 lb 12.8 oz Body Mass Index (BMI) 29.2 Intake and Output for Last 24 Hours 06/26/19 06/27/19 06/28/19 23:59 23:59 23:59 Intake Total 2551.17 / 2551.17 Balance 2551.17 / 2551.17 General: Alert, Oriented x3, Cooperative HEENT: PERRLA, EOMI Oral: Moist Mucosa Neck: Supple Neurological: Cranial nerves II-XII grossly intact Psych/Mental Status: Normal Affect, Appropriate, Alert and oriented to time, place, person, mood and affect Laboratory Results 06/27/19 22:30: WBC 10.1, RBC 4.04 L, Hgb 12.6, Hct 36.7 L, MCV 90.8, MCH 31.2, MCHC 34.3, RDW Std Deviation 41.6, RDW Coeff of Koffi 12.6, Plt Count 236, MPV 10.9, Immature Gran % (Auto) 0.500, Neut % (Auto) 76.1 H, Lymph % (Auto) 16.7 L, [place] % (Auto) 6.2, Eos % (Auto) 0.2, Baso % (Auto) 0.3, Absolute Neuts (auto) 7.7, Absolute Lymphs (auto) 1.69, Nucleated RBC % 0 06/27/19 22:30: Blood Type A POSITIVE, Antibody Screen NEGATIVE Current Medications Acetaminophen (Tylenol) 325 - 650 mg PO Q4H PRN PRN PRN Reason: Pain Score 1-3/10 Al Hydroxide/Mg Hydroxide (Mylanta Ii) 15 - 30 ml PO Q4H PRN PRN PRN Reason: INDIGESTION Citric Acid/Sodium Citrate (Bicitra) 30 ml PO X1 PRN PRN Reason: Section Ephedrine Sulfate () 10 mg IV Q10M PRN PRN Reason: hypotension Ephedrine Sulfate () 10 mg IM Q30M PRN PRN Reason: hypotension Fentanyl/Bupivacaine/Sodium Chlor () 0 ml EPIDURAL UD [facility]; Protocol Last Admin: 06/28/19 14:18 Dose: 100 ml Documented by: Lactated Ringer's () 1,000 mls @ 50 mls/hr IV .Q20H [facility] Last Infusion: 06/28/19 14:00 Dose: 200 mls/hr Documented by: Lactated Ringer's () 500 mls @ 999 mls/hr IV .Q31M PRN PRN Reason: Epidural Last Infusion: 06/28/19 14:00 Dose: Infused Documented by: Lactated Ringer's () 500 mls @ 999 mls/hr IV .Q31M PRN PRN Reason: Corrective Measures Last Admin: 06/28/19 15:17 Dose: 999 mls/hr Documented by: Naloxone HCl 4 mg/ Dextrose 504 mls @ 0 mls/hr IV .Q0M PRN; Protocol PRN Reason: To maintain Resp. rate >10 Levetiracetam (Keppra Tablet) 1,000 mg PO BID [facility] Last Admin: 06/28/19 11:11 Dose: 1,000 mg Documented by: Nalbuphine HCl (Nubain) 5 - 10 mg IV Q3H PRN PRN PRN Reason: Pain Score 4-10/10 Nalbuphine HCl (Nubain) 5 - 10 mg SC Q3H PRN PRN PRN Reason: Pain Score 4-10/10 Nalbuphine HCl (Nubain) 5 mg IV Q3H PRN PRN PRN Reason: ITCHING Naloxone HCl (Narcan) 0.02 mg IV Q1M PRN PRN Reason: RR< 10 AND PT UNRESPONSIVE Ondansetron HCl (Zofran) 4 mg IV Q4H PRN PRN PRN Reason: NAUSEA Prochlorperazine Edisylate (Compazine Iv) 10 mg IV Q6H PRN PRN PRN Reason: NAUSEA Sodium Chloride () 10 - 40 ml IV X1 PRN PRN Reason: SALINE FLUSH Sodium Chloride () 200 ml INTRA-UTER X1 ONE Stop: 11/05/19 15:27 Medical Necessity - Tobacco Use Smoking Status: Never smoker Assessment/Plan Assessment: Early labor, minimal cervical change Coping well Cat 2 FHTs Plan: D/w Dr. Frazier Begin amnioinfusion Continuous EFM, close monitoring
--- NOTE | 2019-06-28 16:41 | PCM.PN.BLA ---
Progress Note LABOR PROGRESS NOTE Prolonged deceleration again noted 5 min to 80-90s with return then to 130-140s Early decelerations noted. CX 3 cm at last check Pt to knee chest and FHR improved. to 130-140s. A/P: 40 4/7 wk EGA Nonreassuring FHR tracing. Multiple FHR decelerations throughout labor. Irreg UCs and very minimal change of cervix. Advised pt and spouse that if she were 9-10 cm more likely would be able to deliver by . Advised, given early labor with persistent interval FHR decelerations. Proceed with primary C/S. Dr Ayala notified. no CSM CONSULTANT available. 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
[2019-06-28] MEDS: Sodium Citrate/Citric Acid 30 ML UDC PO (16:42)
[2019-06-28] MEDS: Cefazolin 2 GM in 0.9% Normal Saline 100 ML IV (17:00)
--- NOTE | 2019-06-28 17:41 | OP.PCM_ITS ---
Delivery Classification: SOHAM Final GLO: 06/24/19 Gestational age: 40 Weeks and 4 Days mortgage loan interviewer: Dahiana Calvo MD Followed By GERRY Poon Type of Anesthesia:: Epidural - with local 1% lidocaine to L side of incision, 8 cc SC Date of Procedure: 06/28/19 Pre-Operative Diagnosis: 40 4/7 wk nonreassuring FHR tracing. Repetitive, Deep, intermittent, prolonged decelerations. Post-Operative Diagnosis: Same. Cord around the neck times one Indications: repetitive intermittent prolonged FHR decelerations. Indications for : Nonreassuring Status Description of Procedure: Findings: At amniotomy, clear fluid was noted. Rowell viable male in vertex presentation. Apgars 8/9, Baby weight: 7# 3 oz There was a normal appearing uterus, fallopian tubes and ovaries bilaterally. PATH: Routine cord gases were sent. Narrative account: After the risks, benefits and alternatives of the procedure were reviewed with the patient, informed consent was obtained. The patient was taken to the Operating room with an IV running, a Kirkland catheter in place and epidural catheter in place. She was positioned on the operating table in dorsal supine position with leftward displacement of the uterus and the epidural was dosed to surgical levels. The scalp lead was removed. Once the epidural was deemed adequate, a Pfannenstiel skin incision was created using the knife and carried down to the rectus fascia using the knife. The fascia was nicked in the midline. The fascial incision was extended bilaterally using curved Robins scissors. The superior aspect of the fascial incision was grasped with Daina clamps and tented up and the underlying rectus abdominal muscles were dissected free. In a similar manner, the inferior aspect of the facial incision was grasped with Daina clamps tented up and the underlying rectus abdominal muscles were dissected free. The rectus abdominis muscles were in the midline and the peritoneum was identified and entered by blunt dissection high in the incision. The peritoneum was stretched laterally and a bladder blade was inserted. A bladder flap was created along the lower uterine segment with Metzenbaum scissors . The uterine incision was then created using Metzenbaum scissors. The operators fingertips were used to extend the uterine incision by blunt dissection in a caudad- cephalad orientation . Clear fluid was noted at amniotomy. The vertex was then delivered atraumatically through the incision. Cord around the neck times one was noted and reduced. The shoulders delivered easily The OP and nares were bulb suctioned on the abdomen. The cord clamped x two and cut. And the infant was handed off to the nurse awaiting delivery after briefly showing him to his parents. The baby had a spontaneous, vigorous cry. The placenta was then delivered. The uterus was exteriorized and cleared of clots and debris . The uterine incision was repaired with 1 Vicryl in a running locked fashion. A second imbricating layer was then placed, using 1 Monocryl in running nonlocked fashion. Bovie cautery was used to treat any bleeding areas . Excellent hemostasis was noted. At this point the uterus was returned to the abdominal cavity. The gutters were cleared of clots and debris, the pelvis and abdomen irrigated, and the incision at the uterus was inspected. Harjeet was applied along the entire incision for continued hemostasis. Excellent hemostasis was noted. The peritoneal edges and rectus abdominis muscles were reapproximated in the midline with a series of vertical mattress stitches of of 1 Vicryl. Excellent hemostasis was noted at the subfascial space The fascia was closed in a running nonlocked fashion with a Stratofix. The Subcutaneous fatty tissue was Bovie cauterized as needed for hemostasis. Harjeet was liberally dusted at this layer to prevent seroma formation. This layer was then reapproximated in a single layer closure of running 3-0 Vicryl to eliminate space. The skin edges were closed in a Subcuticular stitch of 4-0 Monocryl. The incision was cleansed. Cavilon, Steristrips, and Mepilex dressing were applied to the skin . The patient was then transferred to the recovery room bed in stable condition after tolerating the procedure well. Sponge, lap, needle and instrument counts correct times two. Medications given preop and intraoperatively included: Ancef 2 gm given lead section supervisor to the operating room. The patient also received Pitocin given IV after cord clamp, and Toradol 30 mg IV times one. For a complete listing of medications given preop and intraoperatively, please see the anesthesia record. Amniotic Membrane Rupture Type: Artificial Amniotic Fluid Description: Clear Specimen(s) sent to pathology: cord gases Drain: Kirkland to straight drain Fluids Replaced: LR Cord Entanglement: Around neck x 1, loose Nuchal Cord Compression: With compression Cord Vessel Description: 3 Vessels Infant Gender: Male - 7# 2 oz (1 minute): 8 (5 minute): 9 Antibiotic Given: Ancef 2 grams IV x1 Pt instructed on risks of surgery: Bleeding, Infection - Admit VTE Documentation VTE Present on Admission: No VTE Mechan Device Prophylaxis: SCD's VTE Pharm Prophylaxis ordered?: No
[2019-06-28] MEDS: Oxytocin 30 units/NS 500 ml 30 UNITS/500 ML IV.SOLN 167 UNITS IV (18:10)
[2019-06-28] MEDS: Lactated Ringers 1,000 ML 100 ML IV (21:31)
--- NOTE | 2019-06-28 21:53 | NURSING ---
epidural catheter removed, blue tip intact.
--- NOTE | 2019-06-28 23:35 | DCINST_ITS ---
Discharge Diet: No Restrictions Discharge Activity: May Shower, May Take a Tub Bath May resume sexual activity in: 4-6 weeks Lifting Restrictions: 20 pounds Additional Activity Instructions:: Nothing in the vagina for 4-6 weeks. You may return to work/school in 6 weeks. Change Dressing in (Days):: 14 Remove Dressing in (days):: 14 Cleanse incision/area with: Soap & Water, Keep Dressing Clean & Dry Additional Instructions: If you experience any of the following, contact your healthcare provider. * Bleeding that soaks a pad every hour for 2 hours * Fever 100.4 or higher * Unrelieved incision or abdominal pain * Swelling, redness, discharge or bleeding from your incision * Problems urinating (including inability to urinate or burning while urinating). * Visual changes * Severe headache * Flu-like symptoms * Pain or redness in one of both of your breasts * Pain, warmth, tenderness or swelling in your legs, especially the calf area * Frequent nausea and vomiting * Symptoms of depression or anxiety If you experience any of the following, call 911 or go to the nearest Emergency Room. * Chest pain * Problems breathing * Seizure activity * Partial or complete paralysis of a body part, slurred speech, weakness or drooping of the face, or a sudden inability to walk or hold your balance Allergies/Adverse Reactions: Allergies clarithromycin [From Biaxin] Allergy (Verified 06/27/19 22:57) Hives Medications to take at Discharge Folic Acid 0.8 mg PO DAILY@0800 07/30/18 Levetiracetam [Keppra] 1 tab PO BID 06/27/19 Docusate Sodium [Colace] 100 mg PO BID #30 cap 06/28/19 Naproxen [Naprosyn] 250 - 500 mg PO TID PRN PRN #30 tab 06/28/19 Oxycodone [Oxyir] 5 - 10 mg PO Q6H PRN PRN 4 Days #15 tablet 06/28/19 Polyethylene Glycol 3350 [Miralax] 17 gm PO DAILY PRN #14 packet 06/28/19 The following prescriptions were given: Docusate Sodium [Colace] 100 mg PO BID #30 cap Transmission Status: Pending to [id number] Polyethylene Glycol 3350 [Miralax] 17 gm PO DAILY PRN #14 packet PRN Reason: Constipation Transmission Status: Pending to [id number] Naproxen [Naprosyn] 250 - 500 mg PO TID PRN PRN #30 tab PRN Reason: Mild-Mod Pain (1-12/31) Transmission Status: Pending to [id number] Oxycodone [Oxyir] 5 - 10 mg PO Q6H PRN PRN 4 Days #15 tablet PRN Reason: Mod-Severe Pain (-06/02) Transmission Status: Received by [id number] Follow-Up: Call to make an appointment with your doctor for an incision check in 1-2 weeks. You will also need a 6 week post- follow up appointment. Test results from this visit will be discussed in further detail at your follow- up appointment, if applicable. Please Follow Up With: Ginny Frazier MD - [phone] When: Call to make an appointment for an incision check in 2 weeks. Primary Care Physician: Care Physician,No Primary [Primary Care Provider] - Proposed Discharge Date: 07/01/19
[2019-06-28] MEDS: Ketorolac 30 MG/ML Syringe IV (23:44)
[2019-06-29] VITALS (14 sets, daily range): BP systolic 105–127; BP diastolic 59–77; PULSE 67–84; RESP 15–18; TEMP 36.8–38.2; O2SAT 96–99
[2019-06-29] MEDS: Ketorolac 30 MG/ML Syringe IV ×3 (05:20→17:45)
[2019-06-29 05:44] LABS: Hematocrit 31.8 % (37-47); Hemoglobin 10.6 g/dL (12.0-15.0); Mean Corp Hgb Conc 33.3 g/dL (32-36); Mean Corpuscular Hgb 30.6 pg (27.0-32.0); Mean Corpuscular Volume 91.9 fL (81-99); Mean Platelet Vol. 10.4 fl (6.2-12.0); Platelet Count 162 K/mm3 (150-450); RBC Distribution Width CV 12.9 % (11.6-14.6); RBC Distribution Width SD 42.9 fl (35.1-43.9); Red Blood Count 3.46 M/mm3 (4.2-5.4); White Blood Count 12.1 K/mm3 (4.4-11.0)
--- NOTE | 2019-06-29 07:33 | PCM.PN.OB ---
Subjective: Pain well controlled, not passing flatus yet, has not eaten yet; infant nursing moderately well, having some latch difficulties, RN's are helping and she is looking forward to a consult today; emotionally processing unplanned surgical delivery, but happy with healthy outcome. Objective: AVSS Sitting up in chair, ayala out; moves well from chair to bed Breasts soft, nipples atraumatic Fundus firm, midline, u/1, lochia scant Abdominal dressing dry and intact; small 1cm x 1cm area of dried bloody drainage, marked to monitor any change - Physical Exam Vitals/I&O's: Vital Signs Temp Pulse Resp BP Pulse Ox 99.9 F H 82 16 112/77 97 06/29/19 04:05 06/29/19 05:23 06/29/19 05:23 06/29/19 04:05 06/29/19 05:23 Oxygen Delivery Method Room Air Weight: 164 lb 12.8 oz Body Mass Index (BMI) 29.2 Intake and Output for Last 24 Hours 06/27/19 06/28/19 06/29/19 23:59 23:59 23:59 Intake Total 3727.37 / 3877.37 1040 / 1040 Output Total 1350 / 1650 300 / 300 Balance 2377.37 / 2227.37 740 / 740 General: Alert, Oriented x3, Cooperative, No apparent distress HEENT: PERRLA, EOMI Oral: Moist Mucosa Neck: Supple Lungs: Clear to auscultation, Normal air movement Cardiovascular: Regular rate, Regular Rhythm Abdomen: Bowel Sounds Present, Soft, Non Tender, Non-Distended Extremities: Capillary Refill Less than 3 Seconds, No Calf Tenderness, Edema - mild, non-pitting, bilateral pedal, Peripheral Pulses Normal Skin: No rashes Musculoskeletal: No Tenderness to Palpation of Joints or Extremities Neurological: Cranial nerves II-XII grossly intact, Deep Tendon Reflexes 2+/4 and Symmetrical Psych/Mental Status: Normal Affect, Appropriate, Alert and oriented to time, place, person, mood and affect Laboratory Results 06/29/19 05:30: WBC 12.1 H, RBC 3.46 L, Hgb 10.6 L, Hct 31.8 L, MCV 91.9, MCH 30.6, MCHC 33.3, RDW Std Deviation 42.9, RDW Coeff of Koffi 12.9, Plt Count 162, MPV 10.4 Current Medications Acetaminophen (Tylenol) 1,000 mg PO Q8H PRN PRN Reason: Pain Score 1-3/10 Bisacodyl (Dulcolax) 10 mg RECTAL UD PRN PRN Reason: If no BM Hydrocortisone (Hytone) 1 applic TOPICAL TID PRN PRN; Protocol PRN Reason: Discomfort Lactated Ringer's () 1,000 mls @ 100 mls/hr IV .Q10H [facility] Last Infusion: 06/29/19 06:25 Dose: Infused Documented by: Naloxone HCl 4 mg/ Dextrose 504 mls @ 0 mls/hr IV .Q0M PRN; Protocol PRN Reason: Respiratory depression Ketorolac Tromethamine (Toradol) 30 mg IV Q6 [facility] Stop: 06/30/19 18:01 Last Admin: 06/29/19 05:20 Dose: 30 mg Documented by: Levetiracetam (Keppra Tablet) 1,000 mg PO BID [facility] Last Admin: 06/28/19 23:44 Dose: 1,000 mg Documented by: Methylergonovine Maleate (Methergine) 0.2 mg IM X1 PRN PRN Reason: Uterine Atony Naloxone HCl (Narcan) 0.02 mg IV Q1M PRN PRN Reason: RR <10 and pt unresponsive Naproxen (Naprosyn) 250 - 500 mg PO Q8H PRN PRN PRN Reason: Pain Score 1-3/10 Ondansetron HCl (Zofran) 4 mg IV Q4H PRN PRN PRN Reason: Nausea Oxycodone HCl (Oxyir) 5 - 10 mg PO Q4H PRN PRN PRN Reason: Pain Score 4-10/10 Prochlorperazine Edisylate (Compazine Iv) 10 mg IV Q6H PRN PRN PRN Reason: NAUSEA Senna/Docusate Sodium (Senokot-S, Julia-Colace) 0 tablet PO DAILY PRN PRN Reason: Constipation Simethicone (Mylicon) 80 mg PO [facility] PRN PRN Reason: Indigestion/stomach pain Sodium Chloride () 5 - 15 ml IV UD PRN PRN Reason: SALINE FLUSH Zolpidem Tartrate (Ambien (Generic)) 5 mg PO QHS PRN PRN PRN Reason: Insomnia Medical Necessity - Tobacco Use Smoking Status: Never smoker Assessment/Plan Assessment: 24yo G1 now P1001 delivered by primary Caesarean at 40w4d gestation by L=8w3d US for non reassuring FHR tracing. POD #1, normal involution, normal postoperative/ course Infant rooming in and doing well Plan: Encourage regular diet consult Continue routine care
--- NOTE | 2019-06-29 08:25 | PN.OBGYN_ITS ---
Subjective: POD#1 Pain control adequate Nursing. Denies passing flatus Objective: Sitting up semirecumbent in bed, Holding and nursing baby - Physical Exam Vitals/I&O's: Vital Signs Temp Pulse Resp BP Pulse Ox 99.9 F H 82 16 112/77 97 06/29/19 04:05 06/29/19 05:23 06/29/19 05:23 06/29/19 04:05 06/29/19 05:23 Oxygen Delivery Method Room Air Weight: 74.752 kg Body Mass Index (BMI) 29.2 Intake and Output for Last 24 Hours 06/27/19 06/28/19 06/29/19 23:59 23:59 23:59 Intake Total 3727.37 / 3877.37 1040 / 1040 Output Total 1350 / 1650 300 / 300 Balance 2377.37 / 2227.37 740 / 740 General: Alert, Oriented x3, Cooperative, No apparent distress HEENT: Atraumatic, EOMI Neck: Supple Abdomen: Soft - softly distended, tympanitic. Fundus firm at inferior to umbilicus, minimally tender c/w postop status. Skin: Incision - Mepilex CDI with old shadow drainage 1 cm marked. w/o extension. Psych/Mental Status: Normal Affect Laboratory Results 06/29/19 05:30: WBC 12.1 H, RBC 3.46 L, Hgb 10.6 L, Hct 31.8 L, MCV 91.9, MCH 30.6, MCHC 33.3, RDW Std Deviation 42.9, RDW Coeff of Koffi 12.9, Plt Count 162, MPV 10.4 Current Medications Acetaminophen (Tylenol) 1,000 mg PO Q8H PRN PRN Reason: Pain Score 1-3/10 Bisacodyl (Dulcolax) 10 mg RECTAL UD PRN PRN Reason: If no BM Hydrocortisone (Hytone) 1 applic TOPICAL TID PRN PRN; Protocol PRN Reason: Discomfort Lactated Ringer's () 1,000 mls @ 100 mls/hr IV .Q10H NIKO Last Infusion: 06/29/19 06:25 Dose: Infused Documented by: Naloxone HCl 4 mg/ Dextrose 504 mls @ 0 mls/hr IV .Q0M PRN; Protocol PRN Reason: Respiratory depression Ketorolac Tromethamine (Toradol) 30 mg IV Q6 [facility] Stop: 06/30/19 18:01 Last Admin: 06/29/19 05:20 Dose: 30 mg Documented by: Levetiracetam (Keppra Tablet) 1,000 mg PO BID [facility] Last Admin: 06/28/19 23:44 Dose: 1,000 mg Documented by: Methylergonovine Maleate (Methergine) 0.2 mg IM X1 PRN PRN Reason: Uterine Atony Naloxone HCl (Narcan) 0.02 mg IV Q1M PRN PRN Reason: RR <10 and pt unresponsive Naproxen (Naprosyn) 250 - 500 mg PO Q8H PRN PRN PRN Reason: Pain Score 1-3/10 Ondansetron HCl (Zofran) 4 mg IV Q4H PRN PRN PRN Reason: Nausea Oxycodone HCl (Oxyir) 5 - 10 mg PO Q4H PRN PRN PRN Reason: Pain Score 4-10/10 Prochlorperazine Edisylate (Compazine Iv) 10 mg IV Q6H PRN PRN PRN Reason: NAUSEA Senna/Docusate Sodium (Senokot-S, Julia-Colace) 0 tablet PO DAILY PRN PRN Reason: Constipation Simethicone (Mylicon) 80 mg PO PCHS PRN PRN Reason: Indigestion/stomach pain Sodium Chloride () 5 - 15 ml IV UD PRN PRN Reason: SALINE FLUSH Zolpidem Tartrate (Ambien (Generic)) 5 mg PO QHS PRN PRN PRN Reason: Insomnia Medical Necessity - Tobacco Use Smoking Status: Never smoker Assessment/Plan POD#1 Primary C/S for nonreassuring FHT , repetitive deep decelerations. Stable postop. WBCs mild elevation c/w reactive change. Hgb stable Temps. Low grade No incentive spirometer in use at this point. Encourage pulmonary toilet Watch for resolution Continue routine care. Inc diet and activity as tolerated. Begin po meds. D/C ayala for voiding trial. S/L IV for continued toradol.
[2019-06-29] MEDS: levETIRAcetam 1,000 MG Tablet 1000 MG PO ×2 (10:44→22:36)
[2019-06-29] MEDS: 0.9% Saline Lock 10 ML Syringe IV ×2 (12:55→13:04)
--- NOTE | 2019-06-29 21:59 | SUR.OPER ---
At 2140 this RN took patient's scheduled dose of Keppra to room, gave to patient. Patient then stated that she took this morning's dose of Keppra a little late and would like to wait until 0 to take next dose. Opened dose of Keppra placed in sharps container and witnessed by Sukumar HOLCOMB.
[2019-06-29] MEDS: Senna/Docusate Sodium 1 Tablet PO (22:36)
[2019-06-30] MEDS: Ketorolac 30 MG/ML Syringe IV ×4 (00:02→17:48)
[2019-06-30 01:41] VITALS: BP 123/54; PULSE 71; RESP 16; TEMP 37.1; O2SAT 95
[2019-06-30] MEDS: 0.9% Saline Lock 10 ML Syringe IV ×3 (06:06→17:48)
[2019-06-30 08:00] VITALS: BP 108/62; PULSE 67; RESP 16; TEMP 36.7
--- NOTE | 2019-06-30 08:06 | PCM.PN.OB ---
Subjective: Post op day #2 Having mild to moderate pain which is being controlled with IV toradol. Is feeling better than yesterday. Passing flatus with no BM yet. is going better with infant male nursing most of the night. States she would like to wait to go home until tomorrow night. Objective: Sitting in bed doing kangaroo care with infant. Smiling on writers entry to room. Appears tired, but well. States pain is a 3/10 and is agreeable with trying to go to oral medication. BS +. Fundus 2 under umbilicus. Bleeding is mild to moderate, negative odor. Surgical incision covered with mepilex. Old drainage site circled, no new drainage noted. Negative for warmth, redness or swelling around incision site. Negative for BLE edema, with SCDs on. Will discuss POC with Dr. Luis. - Physical Exam Vitals/I&O's: Vital Signs Temp Pulse Resp BP Pulse Ox 98.8 F 71 16 123/54 H 95 06/30/19 01:41 06/30/19 01:41 06/30/19 01:41 06/30/19 01:41 06/30/19 01:41 Oxygen Delivery Method Room Air Weight: 74.752 kg Body Mass Index (BMI) 29.2 Intake and Output for Last 24 Hours 06/28/19 06/29/19 06/30/19 23:59 23:59 23:59 Intake Total 4675.70 / 4825.70 1040 / 1040 Output Total 1350 / 1650 1100 / 1100 Balance 3325.70 / 3175.70 -60 / -60 General: Alert, Oriented x3, Cooperative HEENT: Atraumatic, PERRLA, EOMI, Normocephalic Neck: Supple, No JVD, Negative Carotid Bruits Lungs: Clear to auscultation, Normal air movement Cardiovascular: Regular rate, No murmurs Abdomen: Bowel Sounds Present, Soft, Passing Flatus, Tender - around incision site Extremities: No edema, Capillary Refill Less than 3 Seconds Skin: No rashes, No breakdown Musculoskeletal: No Tenderness to Palpation of Joints or Extremities Neurological: Cranial nerves II-XII grossly intact Psych/Mental Status: Normal Affect, Appropriate Current Medications Acetaminophen (Tylenol) 1,000 mg PO Q8H PRN PRN Reason: Pain Score 1-3/10 Bisacodyl (Dulcolax) 10 mg RECTAL UD PRN PRN Reason: If no BM Hydrocortisone (Hytone) 1 applic TOPICAL TID PRN PRN; Protocol PRN Reason: Discomfort Naloxone HCl 4 mg/ Dextrose 504 mls @ 0 mls/hr IV .Q0M PRN; Protocol PRN Reason: Respiratory depression Ketorolac Tromethamine (Toradol) 30 mg IV Q6 [facility] Stop: 06/30/19 18:01 Last Admin: 06/30/19 06:06 Dose: 30 mg Documented by: Levetiracetam (Keppra Tablet) 1,000 mg PO BID [facility] Last Admin: 06/29/19 22:36 Dose: 1,000 mg Documented by: Methylergonovine Maleate (Methergine) 0.2 mg IM X1 PRN PRN Reason: Uterine Atony Naloxone HCl (Narcan) 0.02 mg IV Q1M PRN PRN Reason: RR <10 and pt unresponsive Naproxen (Naprosyn) 250 - 500 mg PO Q8H PRN PRN PRN Reason: Pain Score 1-3/10 Ondansetron HCl (Zofran) 4 mg IV Q4H PRN PRN PRN Reason: Nausea Oxycodone HCl (Oxyir) 5 - 10 mg PO Q4H PRN PRN PRN Reason: Pain Score 4-10/10 Prochlorperazine Edisylate (Compazine Iv) 10 mg IV Q6H PRN PRN PRN Reason: NAUSEA Senna/Docusate Sodium (Senokot-S, Julia-Colace) 0 tablet PO DAILY PRN PRN Reason: Constipation Last Admin: 06/29/19 22:36 Dose: 2 tablet Documented by: Simethicone (Mylicon) 80 mg PO PCHS PRN PRN Reason: Indigestion/stomach pain Sodium Chloride () 5 - 15 ml IV UD PRN PRN Reason: SALINE FLUSH Last Admin: 06/30/19 06:06 Dose: 10 ml Documented by: Zolpidem Tartrate (Ambien (Generic)) 5 mg PO QHS PRN PRN PRN Reason: Insomnia Medical Necessity - Tobacco Use Smoking Status: Never smoker
[2019-06-30] MEDS: levETIRAcetam 1,000 MG Tablet 1000 MG PO ×2 (10:27→22:07)
[2019-06-30] MEDS: Senna/Docusate Sodium 1 Tablet PO (10:28)
[2019-06-30 14:00] VITALS: BP 113/68; PULSE 76; RESP 16; TEMP 37.2
[2019-06-30 20:35] VITALS: BP 114/63; PULSE 80; RESP 16; TEMP 37.2
--- NOTE | 2019-06-30 21:49 | NURSING ---
pt was gassy and feeling a little nauseated improved with going to bathroom byut still with gas so gave mylicaon pt states she is feeling better now.
[2019-07-01 02:00] VITALS: BP 111/67; PULSE 82; RESP 16; TEMP 36.9
[2019-07-01] MEDS: Naproxen 250 MG Tablet PO (05:53)
--- NOTE | 2019-07-01 07:22 | PCM.PN.OB ---
Subjective: POD#3 Primary C section nonreassuring FHT Doing OK. would like to go home later today. Breast feeding and baby up a lot at night. Believes may be due to staff coming to check on him in night time. Pain control adequate and not taking narcotic med for this. Has had some assistance with nursing. Objective: Up walking around room with crying baby. States he is hungry again and ate just 1 hr ago. - Physical Exam Vitals/I&O's: Vital Signs Temp Pulse Resp BP Pulse Ox 98.4 F 82 16 111/67 95 07/01/19 02:00 07/01/19 02:00 07/01/19 02:00 07/01/19 02:00 06/30/19 01:41 Oxygen Delivery Method Room Air Weight: 74.752 kg Body Mass Index (BMI) 29.2 Intake and Output for Last 24 Hours 06/29/19 06/30/19 07/01/19 23:59 23:59 23:59 Intake Total 1040 / 1040 Output Total 1100 / 1100 Balance -60 / -60 General: Alert, Oriented x3, Cooperative, No apparent distress HEENT: Atraumatic, EOMI Neck: Supple Neurological: Cranial nerves II-XII grossly intact Psych/Mental Status: Normal Affect Current Medications Acetaminophen (Tylenol) 1,000 mg PO Q8H PRN PRN Reason: Pain Score 1-3/10 Bisacodyl (Dulcolax) 10 mg RECTAL UD PRN PRN Reason: If no BM Hydrocortisone (Hytone) 1 applic TOPICAL TID PRN PRN; Protocol PRN Reason: Discomfort Naloxone HCl 4 mg/ Dextrose 504 mls @ 0 mls/hr IV .Q0M PRN; Protocol PRN Reason: Respiratory depression Levetiracetam (Keppra Tablet) 1,000 mg PO BID [facility] Last Admin: 06/30/19 22:07 Dose: 1,000 mg Documented by: Methylergonovine Maleate (Methergine) 0.2 mg IM X1 PRN PRN Reason: Uterine Atony Naloxone HCl (Narcan) 0.02 mg IV Q1M PRN PRN Reason: RR <10 and pt unresponsive Naproxen (Naprosyn) 250 - 500 mg PO Q8H PRN PRN PRN Reason: Pain Score 1-3/10 Last Admin: 07/01/19 05:53 Dose: 500 mg Documented by: Ondansetron HCl (Zofran) 4 mg IV Q4H PRN PRN PRN Reason: Nausea Oxycodone HCl (Oxyir) 5 - 10 mg PO Q4H PRN PRN PRN Reason: Pain Score 4-10/10 Prochlorperazine Edisylate (Compazine Iv) 10 mg IV Q6H PRN PRN PRN Reason: NAUSEA Senna/Docusate Sodium (Senokot-S, Julia-Colace) 0 tablet PO DAILY PRN PRN Reason: Constipation Last Admin: 06/30/19 10:28 Dose: 2 tablet Documented by: Simethicone (Mylicon) 80 mg PO PCHS PRN PRN Reason: Indigestion/stomach pain Last Admin: 06/30/19 21:08 Dose: 80 mg Documented by: Sodium Chloride () 5 - 15 ml IV UD PRN PRN Reason: SALINE FLUSH Last Admin: 06/30/19 17:48 Dose: 10 ml Documented by: Zolpidem Tartrate (Ambien (Generic)) 5 mg PO QHS PRN PRN PRN Reason: Insomnia Medical Necessity - Tobacco Use Smoking Status: Never smoker Assessment/Plan POD#3 Primary C/S for nonreassuring FHT , repetitive deep decelerations. Stable postop. Plans to go home today. Will remove Mepilex prior to dischg. Advised postop check in 2 wk
--- NOTE | 2019-07-01 07:27 | PCM.DC.SUM ---
Discharge Date and Diagnosis Date of Admission: 06/27/19 Date of Discharge: 07/01/19 Hospital Course and Treatment Operations: - - Primary C section for intolerance of labor. Repetitive deep decelerations. Summary of Care Provided: The patient is a 24 year old female presents in early labor. Admitted. Intermittent deep decelerations with variable onset or return noted. continued labor. Recommended AROM to augment labor, place internals and to begin amnioinfusion. Declined intervention. BPP 6/8 with YADIRA appropriate. ? CAN noted on sono vs cord adjacent to neck. Continued labor , eventually allowed AROM. Continued intermittent deep decelerations noted lasting 2-5 + mins. Cx 3 cm remote from delivery. Primary C section recommended 2/2 nonreassuring FHR tracing, decelerations, intolernace of labor. Primary C/S performed 06/28/19. Procedure uncomplicated. CAN noted times one. [place] viable male Ap 8/9 Hgb 12.6 gm/dl preoperatively, decreased to 10.6 g/dl POD#1 Postoperative course uneventful. Initially low grade temps , resolved with pulmonary toilet, incentive spirometer. Elected dischg to home POD#3. - Physical Exam Vitals/I&O's: Vital Signs Temp Pulse Resp BP Pulse Ox 98.4 F 82 16 111/67 95 07/01/19 02:00 07/01/19 02:00 07/01/19 02:00 07/01/19 02:00 06/30/19 01:41 Oxygen Delivery Method Room Air Weight: 74.752 kg Body Mass Index (BMI) 29.2 Intake and Output for Last 24 Hours 06/29/19 06/30/19 07/01/19 23:59 23:59 23:59 Intake Total 1040 / 1040 Output Total 1100 / 1100 Balance -60 / -60 Current Medications Acetaminophen (Tylenol) 1,000 mg PO Q8H PRN PRN Reason: Pain Score 1-3/10 Bisacodyl (Dulcolax) 10 mg RECTAL UD PRN PRN Reason: If no BM Hydrocortisone (Hytone) 1 applic TOPICAL TID PRN PRN; Protocol PRN Reason: Discomfort Naloxone HCl 4 mg/ Dextrose 504 mls @ 0 mls/hr IV .Q0M PRN; Protocol PRN Reason: Respiratory depression Levetiracetam (Keppra Tablet) 1,000 mg PO BID [facility] Last Admin: 06/30/19 22:07 Dose: 1,000 mg Documented by: Methylergonovine Maleate (Methergine) 0.2 mg IM X1 PRN PRN Reason: Uterine Atony Naloxone HCl (Narcan) 0.02 mg IV Q1M PRN PRN Reason: RR <10 and pt unresponsive Naproxen (Naprosyn) 250 - 500 mg PO Q8H PRN PRN PRN Reason: Pain Score 1-3/10 Last Admin: 07/01/19 05:53 Dose: 500 mg Documented by: Ondansetron HCl (Zofran) 4 mg IV Q4H PRN PRN PRN Reason: Nausea Oxycodone HCl (Oxyir) 5 - 10 mg PO Q4H PRN PRN PRN Reason: Pain Score 4-10/10 Prochlorperazine Edisylate (Compazine Iv) 10 mg IV Q6H PRN PRN PRN Reason: NAUSEA Senna/Docusate Sodium (Senokot-S, Julia-Colace) 0 tablet PO DAILY PRN PRN Reason: Constipation Last Admin: 06/30/19 10:28 Dose: 2 tablet Documented by: Simethicone (Mylicon) 80 mg PO PCHS PRN PRN Reason: Indigestion/stomach pain Last Admin: 06/30/19 21:08 Dose: 80 mg Documented by: Sodium Chloride () 5 - 15 ml IV UD PRN PRN Reason: SALINE FLUSH Last Admin: 06/30/19 17:48 Dose: 10 ml Documented by: Zolpidem Tartrate (Ambien (Generic)) 5 mg PO QHS PRN PRN PRN Reason: Insomnia Discharge Diet: No Restrictions Discharge Activity: May Shower, May Take a Tub Bath May resume sexual activity in: 4-6 weeks Additional Activity Instructions:: Nothing in the vagina for 4-6 weeks. You may return to work/school in 6 weeks. Change Dressing in (Days):: 14 Remove Dressing in (days):: 14 Cleanse incision/area with: Soap & Water, Keep Dressing Clean & Dry Home Medications: Medications to take at Discharge Folic Acid 0.8 mg PO DAILY@0800 07/30/18 Levetiracetam [Keppra] 1 tab PO BID 06/27/19 Docusate Sodium [Colace] 100 mg PO BID #30 cap 06/28/19 Naproxen [Naprosyn] 250 - 500 mg PO TID PRN PRN #30 tab 06/28/19 Oxycodone [Oxyir] 5 - 10 mg PO Q6H PRN PRN 4 Days #15 tab 06/28/19 Polyethylene Glycol 3350 [Miralax] 17 gm PO DAILY PRN #14 packet 06/28/19 Following Prescrptions Were Given to Patient: Docusate Sodium [Colace] 100 mg PO BID #30 cap Transmission Status: Received by [id number] Polyethylene Glycol 3350 [Miralax] 17 gm PO DAILY PRN #14 packet PRN Reason: Constipation Transmission Status: Received by [id number] Naproxen [Naprosyn] 250 - 500 mg PO TID PRN PRN #30 tab PRN Reason: Mild-Mod Pain (1-12/31) Transmission Status: Received by [id number] Oxycodone [Oxyir] 5 - 10 mg PO Q6H PRN PRN 4 Days #15 tab PRN Reason: Mod-Severe Pain (4-06/02) Transmission Status: Received by [id number] Primary Care Physician: Care Physician,No Primary [Primary Care Provider] - Please Follow Up With: Ginny Frazier MD - [phone] When: Call to make an appointment for an incision check in 2 weeks. Medical Necessity - Tobacco Use Smoking Status: Never smoker Meaningful Use Info Meaningful Use Diagnoses (Choose all that apply): None applicable
[2019-07-01 08:52] VITALS: BP 121/72; PULSE 74; RESP 15; TEMP 36.3; O2SAT 97
--- NOTE | 2019-07-01 10:21 | DCINST_ITS ---
Discharge Diet: No Restrictions Discharge Activity: May not drive while taking narcotic pain medications., May Shower May resume sexual activity in: 4-6 weeks Weight Bearing Status: Full weight bearing Additional Activity Instructions:: Nothing in the vagina for 4-6 weeks. You may return to work/school in 6 weeks. Call your doctor if your incision/area has: Sudden Increased Bleeding, Increased Pain/ Swelling, Increased Redness, Foul Smelling Discharge, Swelling at the incision site Call your doctor if you observe: Fever of 101 or Higher, Inability to urinate, Inability to have a bowel movement, Using more than one pad per hour, Shortness of breath, Dizziness, Swelling in the ankles, Chest pain, Uncontrolled pain Suture Line Care: Avoid Pulling/Pushing, Avoid Pinching/Bending Remove Dressing in (days):: 2 Cleanse incision/area with: Soap & Water, Keep Dressing Clean & Dry Additional Instructions: If you experience any of the following, contact your healthcare provider. * Bleeding that soaks a pad every hour for 2 hours * Fever 100.4 or higher * Unrelieved incision or abdominal pain * Swelling, redness, discharge or bleeding from your incision or episiotomy site * Your incision begins to separate * Problems urinating (including inability to urinate or burning while urinat ing). * Visual changes * Severe headache * Flu-like symptoms * Pain or redness in one of both of your breasts * Pain, warmth, tenderness or swelling in your legs, especially the calf area * Frequent nausea and vomiting * Symptoms of depression or anxiety If you experience any of the following, call 911 or go to the nearest Emergency Room. * Chest pain * Problems breathing * Seizure activity * Partial or complete paralysis of a body part, slurred speech, weakness or drooping of the face, or a sudden inability to walk or hold your balance Allergies/Adverse Reactions: Allergies clarithromycin [From Biaxin] Allergy (Verified 06/27/19 22:57) Hives Medications to take at Discharge Folic Acid 0.8 mg PO DAILY@0800 07/30/18 Levetiracetam [Keppra] 1 tab PO BID 06/27/19 Docusate Sodium [Colace] 100 mg PO BID #30 cap 06/28/19 Naproxen [Naprosyn] 250 - 500 mg PO TID PRN PRN #30 tab 06/28/19 Oxycodone [Oxyir] 5 - 10 mg PO Q6H PRN PRN 4 Days #15 tab 06/28/19 Polyethylene Glycol 3350 [Miralax] 17 gm PO DAILY PRN #14 packet 06/28/19 The following prescriptions were given: Docusate Sodium [Colace] 100 mg PO BID #30 cap Transmission Status: Re[facility] by [id number] Polyethylene Glycol 3350 [Miralax] 17 gm PO DAILY PRN #14 packet PRN Reason: Constipation Transmission Status: Received by [id number] Naproxen [Naprosyn] 250 - 500 mg PO TID PRN PRN #30 tab PRN Reason: Mild-Mod Pain (1-12/31) Transmission Status: Received by [id number] Oxycodone [Oxyir] 5 - 10 mg PO Q6H PRN PRN 4 Days #15 tab PRN Reason: Mod-Severe Pain (-06/02) Transmission Status: Re[facility] by [id number] Follow-Up: Call to make an appointment with your doctor for an incision check in 1-2 weeks. You will also need a 6 week post- follow up appointment. Test results from this visit will be discussed in further detail at your follow- up appointment, if applicable. Primary Care Physician: Care Physician,No Primary [Primary Care Provider] - Proposed Discharge Date: 07/01/19
[2019-07-01] MEDS: levETIRAcetam 1,000 MG Tablet 1000 MG PO (10:24)
[2019-07-01 13:45] VITALS: BP 108/68; PULSE 85; RESP 16; TEMP 36.8
== END 2019-07-01 14:30 | disposition home or self-care (01) | DRG 540 ==
LOC: WPOUT 09:13 → WP 11:04
PROVIDERS: Advanced Practice Midwife; Admitting Provider Obstetrics & Gynecology; Visit Provider Obstetrics & Gynecology
DX: O99.354 Diseases of the nervous system complicating childbirth (principal); G40.909 Epilepsy, unspecified, not intractable, without status epilepticus; O76 Abnormality in fetal heart rate and rhythm complicating labor and delivery; O75.81 Maternal exhaustion complicating labor and delivery; O69.1XX0 Labor and delivery complicated by cord around neck, with compression, not applicable or unspecified; O99.52 Diseases of the respiratory system complicating childbirth; J45.909 Unspecified asthma, uncomplicated; O99.344 Other mental disorders complicating childbirth; F32.9 Major depressive disorder, single episode, unspecified; F41.9 Anxiety disorder, unspecified; Z79.899 Other long term (current) drug therapy; Z88.1 Allergy status to other antibiotic agents; Z3A.40 40 weeks gestation of pregnancy; Z37.0 Single live birth
CPT/HCPCS: 76819; 85025; 85027; 86850; 86900; 86901; 99218; 99251; J7030; J7120; A4216; G0378; G0463

== ENCOUNTER → 2019-08-20 10:35 | Outpatient (CLI) | payer MEDICAID, SELFPAY ==
[2019-06-27 22:21] VITALS: BMI 29.2
[2019-08-20 11:31] LABS: ALB/GLOB Ratio 1.1 RATIO (0.9-2.4); AST(SGOT) 13 U/L (15-37); Alanine Aminotransfer ALT/SGPT 21 U/L (13-56); Alkaline Phosphatase 127 U/L (45-117); Anion Gap 5 (5-15); BUN 18 mg/dL (7-18); BUN/Creat Ratio 17.8 RATIO (10-20); Calcium,Total 9.7 mg/dL (8.5-10.1); Chloride 109 mmol/L (98-107); Creatinine, Serum 1.01 mg/dL (0.55-1.02); EST Glomerular Filtration Rate 72 mL/min (>60); Est Glom Filt Rate - Afr Amer 87 mL/min (>60); Globulin 3.5 g/dL (2.2-4.2); Glucose 95 mg/dL (74-106); Potassium 3.9 mmol/L (3.5-5.1); Protein, Total 7.5 g/dL (6.4-8.2); Sodium Level 142 mmol/L (136-145)
== END ==
PROVIDERS: Referring Provider Nurse Practitioner Family; Visit Provider Nurse Practitioner Family
DX: R56.9 Unspecified convulsions (principal)
CPT/HCPCS: 36415; 80053; 80177

== ENCOUNTER → 2020-07-27 13:10 | Outpatient (CLI) | payer MEDICAID, SELFPAY ==
[2019-06-27 22:21] VITALS: BMI 29.2
[2020-07-27 13:31] LABS: Hematocrit 34.9 % (37-47); Hemoglobin 11.4 g/dL (12.0-15.0); Mean Corp Hgb Conc 32.7 g/dL (32-36); Mean Corpuscular Hgb 30.2 pg (27.0-32.0); Mean Corpuscular Volume 92.6 fL (81-99); Mean Platelet Vol. 9.6 fl (6.2-12.0); Platelet Count 245 K/mm3 (150-450); RBC Distribution Width SD 44.2 fl (35.1-43.9); Red Blood Count 3.77 M/mm3 (4.2-5.4); White Blood Count 8.4 K/mm3 (4.4-11.0)
[2020-07-27 13:56] LABS: Glucose Challenge Gest 1H 50g 107 mg/dL (70-140)
[2020-07-30 13:03] LABS: KEPPRA (LEVETIRACETAM) 8.3 ug/mL (10.0-40.0)
== END ==
PROVIDERS: Visit Provider Student in an Organized Health Care Education/Training Program
DX: Z34.82 Encounter for supervision of other normal pregnancy, second trimester (principal)
CPT/HCPCS: 36415; 80177; 82950; 85027

== ENCOUNTER → 2020-08-09 18:12 | Outpatient (CLI) | payer MEDICAID, SELFPAY ==
[2019-06-27 22:21] VITALS: BMI 29.2
== END ==
PROVIDERS: Referring Provider Student in an Organized Health Care Education/Training Program; Visit Provider Student in an Organized Health Care Education/Training Program
DX: U07.1 COVID-19 (principal)
CPT/HCPCS: 87635; C9803; U0003

== ENCOUNTER → 2020-08-23 11:37 | Outpatient (CLI) | payer MEDICAID, SELFPAY ==
[2019-06-27 22:21] VITALS: BMI 29.2
[2020-08-27 13:06] LABS: KEPPRA (LEVETIRACETAM) 2.1 ug/mL (10.0-40.0)
== END ==
PROVIDERS: Visit Provider Obstetrics & Gynecology
DX: G40.909 Epilepsy, unspecified, not intractable, without status epilepticus (principal)
CPT/HCPCS: 80177

== ENCOUNTER → 2020-09-06 10:48 | Outpatient (CLI) | payer MEDICAID, SELFPAY ==
[2019-06-27 22:21] VITALS: BMI 29.2
[2020-09-10 16:23] LABS: KEPPRA (LEVETIRACETAM) 50.1 ug/mL (10.0-40.0)
== END ==
PROVIDERS: Visit Provider Obstetrics & Gynecology
DX: O99.353 Diseases of the nervous system complicating pregnancy, third trimester (principal); G40.909 Epilepsy, unspecified, not intractable, without status epilepticus; Z3A.00 Weeks of gestation of pregnancy not specified
CPT/HCPCS: 36415; 80177

== ENCOUNTER → 2020-09-28 | Outpatient (CLI) | payer MEDICAID, SELFPAY ==
[2020-09-22 11:54] VITALS: BMI 29.5
== END | disposition home or self-care (01) ==
LOC: LABSPEC 13:17
PROVIDERS: Visit Provider Obstetrics & Gynecology
DX: Z36.85 Encounter for antenatal screening for Streptococcus B (principal)
CPT/HCPCS: 87081

== ENCOUNTER → 2020-10-12 09:59 | Outpatient (CLI) | payer MEDICAID, OTHER, SELFPAY ==
[2020-09-22 11:54] VITALS: BMI 29.5
[2020-10-15 13:00] LABS: KEPPRA (LEVETIRACETAM) 10.8 ug/mL (10.0-40.0)
== END ==
PROVIDERS: Visit Provider Student in an Organized Health Care Education/Training Program
DX: O99.352 Diseases of the nervous system complicating pregnancy, second trimester (principal); G40.909 Epilepsy, unspecified, not intractable, without status epilepticus; Z79.899 Other long term (current) drug therapy; Z3A.00 Weeks of gestation of pregnancy not specified
CPT/HCPCS: 36415; 80177

== ENCOUNTER 2020-10-16 02:50 | Inpatient (IN) | payer MEDICAID, SELFPAY ==
[2020-09-22 11:54] VITALS: BMI 29.5
[2020-10-15 21:56] VITALS: PULSE 87; O2SAT 98
[2020-10-15 21:58] VITALS: BP 126/60; PULSE 75
[2020-10-16] VITALS (37 sets, daily range): BP systolic 99–129; BP diastolic 32–96; PULSE 63–107; RESP 16–18; TEMP 36.6–37.2; O2SAT 96–100; BMI 31.5
[2020-10-16 00:20] LABS: Absolute Lymphocyte Count 1.25 X10^3/uL (0.83-4.51); Absolute Neutrophil Count 7.3 X10^3/uL (2.0-7.7); Basophil# 0.02 X10^3/uL; Basophil% 0.2 % (0-1); Eosinophil# 0.01 X10^3/uL; Eosinophils% 0.1 % (0-5); Hematocrit 34.7 % (37-47); Hemoglobin 11.6 g/dL (12.0-15.0); Lymphocyte # 1.25 X10^3/ul (4.0); Lymphocyte % 13.6 % (19-41); Mean Corp Hgb Conc 33.4 g/dL (32-36); Mean Corpuscular Hgb 30.7 pg (27.0-32.0); Mean Corpuscular Volume 91.8 fL (81-99); Mean Platelet Vol. 10.1 fl (6.2-12.0); Monocyte# 0.57 X10^3/uL; Monocyte% 6.2 % (0-10); NRBC Flagged by Analyzer 0 % (0-5); Neutrophil # 7.28 X10^3/uL (2.7-7.7); Neutrophil % 79.2 % (47-70); Platelet Count 213 K/mm3 (150-450); RBC Distribution Width CV 13.5 % (11.6-14.6); Red Blood Count 3.78 M/mm3 (4.2-5.4); White Blood Count 9.2 K/mm3 (4.4-11.0)
[2020-10-16] MEDS: Acetaminophen 500 MG Tablet 1000 MG PO ×4 (01:12→21:05)
[2020-10-16] MEDS: Lactated Ringers 1,000 ML 999 ML IV (02:45)
[2020-10-16] MEDS: fentaNYL-bupivacaine (epidural) 100 ML BAG EPIDURAL (03:50)
[2020-10-16] MEDS: Lactated Ringers 1,000 ML 150 ML IV (04:00)
--- NOTE | 2020-10-16 07:11 | PCM.HPOB.BLA ---
History and Physical Date of Admission: 10/16/20 HPI: Comminuted. Patient presented to triage overnight for contractions, she was found to be unchanged from her exam on Thursday, however upon admission she had a late deceleration. Recommendation was made for induction at term due to this, patient declines forms of induction and Pitocin. She elects at this time for repeat section. As heart tones were subsequently category 1 and reassuring patient rested overnight and plan for repeat section in the morning as long as heart tones continue to be reassuring. Patient was given epidural overnight for comfort. This is complicated by: Seizure disorder on Keppra patient sees neurologist, last seizure reported in 2012. Asthma. Obstetrical History G1: 40-week primary section for nonreassuring heart tones G2: Current Past Medical History Seizure disorder on Keppra patient sees neurologist, last seizure reported in 2012. Asthma Medications PNV, albuterol, Keppra, folic acid Past Surgical History section Social History Tobacco use: Denies Alcohol use: Denies Illicit drug use: Denies Labs Blood type: A+ Rubella: Immune Hep B/C: Neg/neg HIV: Negative RPR: Nonreactive GBS: neg 2/5 Allergies Clarithromycin Review of Systems General: alert and oriented HEENT: _denies change of vision Heart/lungs: _denies CP, SOB GI: _denies nausea, vomiting, dysuria, diarrhea MSK: _denies calf pain, tenderness Physical Exam Vital Signs Temp Pulse Resp BP Pulse Ox 10/16/20 07:16 87 111/55 L 10/16/20 06:55 97.8 F 69 18 103/56 L 98 10/16/20 05:17 69 103/56 L 10/16/20 04:13 75 114/53 L 10/16/20 04:11 77 98 10/16/20 04:07 76 115/59 L 10/16/20 04:06 98 10/16/20 04:01 85 113/53 L 98 10/16/20 03:59 78 119/57 L 10/16/20 03:56 76 98 10/16/20 03:51 76 129/58 H 99 10/16/20 03:46 82 110/64 100 10/16/20 03:41 84 104/65 99 10/16/20 03:39 107 H 103/59 L 10/16/20 03:36 90 100 10/16/20 03:32 99 124/70 H 10/16/20 03:31 101 H 100 10/16/20 03:26 89 99 10/16/20 03:21 80 98 10/16/20 00:57 71 111/53 L 98 10/15/20 21:58 75 126/60 H 10/15/20 21:56 87 98 General: a&o x3, NAD HEENT: normocephalic, atraumatic Cardio: no JVD Resp: no increased work in breathing Abdomen: soft, gravid, nontender Extremities: _minimal-moderate edema CE: FT/TH/high FHT: 125/mod koffi/+accel/no decel [place]: irregular Labs Laboratory Results - last 24 hr 10/16/20 10/16/20 00:00 00:00 WBC 9.2 RBC 3.78 L Hgb 11.6 L Hct 34.7 L MCV 91.8 MCH 30.7 MCHC 33.4 RDW Std Deviation 45.0 H RDW Coeff of Koffi 13.5 Plt Count 213 MPV 10.1 Immature Gran % (Auto) 0.700 Neut % (Auto) 79.2 H Lymph % (Auto) 13.6 L Mcpherson % (Auto) 6.2 Eos % (Auto) 0.1 Baso % (Auto) 0.2 Absolute Neuts (auto) 7.3 Absolute Lymphs (auto) 1.25 Nucleated RBC % 0 Blood Type A POSITIVE Antibody Screen NEGATIVE Assessment & Plan: 25-year-old G2, P1 at 39 weeks and 1 day, GLO 10/22/2020 by first trimester ultrasound, admitted for repeat section she did. This is complicated by: Seizure disorder on Keppra patient sees neurologist, last seizure reported in 2012. Asthma. -Admit to labor and delivery. -Plan for repeat section due to patient request. heart tones overnight reassuring. Indication for delivery: Late deceleration upon admission at term. All risks, benefits, alternatives were discussed with patient: Risks include but are not limited to: Risk of bleeding to the point of transfusion, infection, injury to surrounding tissue including bowel or bladder, VTE, ICU admission. Patient aware and consented. -CBC, type and screen. Hep-Lock IV. -Patient received epidural overnight for comfort -Seizure disorder: Continue Keppra. -Asthma: Continue albuterol as needed.
[2020-10-16] MEDS: Sodium Citrate/Citric Acid 30 ML UDC PO (07:21)
[2020-10-16] MEDS: Cefazolin 2 GM in 0.9% Normal Saline 100 ML IV (07:29)
--- NOTE | 2020-10-16 08:26 | OP.PCM_ITS ---
Delivery Classification: Scheduled Final GLO: 10/22/20 Final GLO Source: US <20 weeks Gestational age: 39 Weeks and 1 Days Date of Procedure: 10/16/20 Pre-Operative Diagnosis: Repeat section Post-Operative Diagnosis: Repeat section Indications: 25-year-old at 39 weeks and 1 day admitted for repeat section. All risk, benefits, alternatives discussed. Risks include but are not limited to: Risk of bleeding to twin transfusion, infection, injury to surrounding tissue including bowel or bladder requiring prolonged [place] catheter use, VTE, ICU admission. Patient were consented. Description of Procedure: Patient taken to the operating room, epidural dose. Patient placed in the supine position with a left lateral tilt. Prepped draped in usual sterile fashion. Pfannenstiel skin incision made with scalpel and carried down through subcutaneous tissue. Fascia nicked on either side of midline and extended laterally with the Robins scissors. Daina clamps used to grasp superior fascial edge which was tented up and underlying rectus muscles were dissected off bluntly and using Robins scissors. Daina clamps moved to inferior fascial edge which was tented up and underlying rectus muscles were dissected off bluntly and sharply using Robins scissors. 2 hemostats used to separate rectus muscle superiorly, peritoneum grasped and incised with scissors. Extended bluntly. Bladder blade placed. Uterus noted to be dextrorotated. Low transverse uterine incision made with scalpel and extended bluntly. Amniotomy with clear fluid. Hand placed in the uterus and with the assistance of gentle fundal pressure head delivered by followed by body. No nuchal cord. Cord clamped and cut. Baby to nursing. Spontaneous delivery of placenta. Uterus is exteriorized and cleared of all clots. Hysterotomy closed with running locking stitch followed by second vertical imbricating stitch. Small 3 cm hematoma noted at the left inferior lateral edge of the hysterotomy, stable and not expanding. [id number] stitches placed at the right edge of the hysterotomy for hemostasis. Uterus r eplaced into the abdomen. Peritoneum closed with running stitch. Fascia closed with a running stitch. Subcutaneous tissue reapproximated with a running stitch. And skin closed with a running subcuticular stitch. At the end of the procedure all needle, lap, sponge counts were correct x3. Urine output: Approximately 200 cc. Esitmated Blood Loss (ml): 700cc Infant Gender: Male (1 minute): 8 (5 minute): 9 Antibiotic Given: Ancef 2 grams IV x1
[2020-10-16] MEDS: Oxytocin 30 units/NS 500 ml 30 UNITS/500 ML IV.SOLN 167 UNITS IV (08:30)
[2020-10-16] MEDS: Senna/Docusate Sodium 1 Tablet PO (09:25)
[2020-10-16] MEDS: Ondansetron 4 MG/2 ML Vial IV (11:28)
[2020-10-16] MEDS: Lactated Ringers 1,000 ML 100 ML IV (11:29)
[2020-10-16] MEDS: proCHLORPERazine 10 MG/2 ML Vial IV (13:01)
[2020-10-16] MEDS: levETIRAcetam 1,000 MG Tablet 1000 MG PO ×2 (13:27→21:05)
[2020-10-16] MEDS: Ketorolac 30 MG/ML Syringe IV (15:07)
[2020-10-16] MEDS: Lactated Ringers 500 ML 999 ML IV (19:55)
[2020-10-17 00:10] VITALS: BP 118/30; PULSE 80; RESP 16; TEMP 36.7; O2SAT 97
--- NOTE | 2020-10-17 00:19 | NURSING ---
When this RN began shift, pt. had minimal output and was not tolerating PO fluids well. Previous RN reported pt. had just vomitted and hadn't had a true meal yet. 2030 dose of toradol not able to be given d/t inadequate output. Decision made to keep catheter in until pt. can tolerate PO and output is adequate. [place] dc'd at 0000 because pt. had 700 cc of output.
[2020-10-17] MEDS: Acetaminophen 500 MG Tablet 1000 MG PO ×2 (02:11→09:56)
[2020-10-17] MEDS: 0.9% Saline Lock 10 ML Syringe IV (02:12)
[2020-10-17] MEDS: Ketorolac 30 MG/ML Syringe IV (02:12)
[2020-10-17 06:18] LABS: Hematocrit 31.9 % (37-47); Hemoglobin 10.1 g/dL (12.0-15.0); Mean Corp Hgb Conc 31.7 g/dL (32-36); Mean Corpuscular Hgb 30.6 pg (27.0-32.0); Mean Corpuscular Volume 96.7 fL (81-99); Mean Platelet Vol. 9.6 fl (6.2-12.0); Platelet Count 197 K/mm3 (150-450); RBC Distribution Width CV 13.9 % (11.6-14.6); RBC Distribution Width SD 48.7 fl (35.1-43.9); White Blood Count 11.2 K/mm3 (4.4-11.0)
[2020-10-17 08:00] VITALS: BP 107/67; PULSE 81; RESP 18; TEMP 37; O2SAT 99
[2020-10-17] MEDS: Ibuprofen 600 MG Tablet PO (08:03)
--- NOTE | 2020-10-17 08:30 | PN.OBGYN_ITS ---
Subjective: POD#1 Doing well, pain controlled. Lochia minimal. - Physical Exam Vitals/I&O's: Vital Signs Temp Pulse Resp BP Pulse Ox 98.6 F 81 18 107/67 99 10/17/20 08:00 10/17/20 08:00 10/17/20 08:00 10/17/20 08:00 10/17/20 08:00 Oxygen Delivery Method Room Air Weight: 80.739 kg Body Mass Index (BMI) 31.5 Intake and Output for Last 24 Hours 10/15/20 10/16/20 10/17/20 23:59 23:59 23:59 Intake Total 4127.50 / 4127.50 Output Total 675 / 1375 950 / 950 Balance 3452.50 / 2752.50 -950 / -950 General: Alert, Oriented x3, No apparent distress HEENT: Atraumatic, Normocephalic Neck: Supple Lungs: Normal air movement Cardiovascular: Regular rate Abdomen: Soft - dressing c/d, uterus 2 cm below umbilicus Extremities: No edema Neurological: Cranial nerves II-XII grossly intact Psych/Mental Status: Normal Affect, Appropriate Laboratory Results 10/17/20 06:10: WBC 11.2 H, RBC 3.30 L, Hgb 10.1 L, Hct 31.9 L, MCV 96.7 D, MCH 30.6, MCHC 31.7 L D, RDW Std Deviation 48.7 H, RDW Coeff of Koffi 13.9, Plt Count 197, MPV 9.6 Current Medications Acetaminophen (Acetaminophen 500 Mg Tablet) 1,000 mg PO Q6H [facility] Last Admin: 10/17/20 02:11 Dose: 1,000 mg Documented by: Bisacodyl (Bisacodyl 10 Mg Suppository) 10 mg RC UD PRN PRN Reason: If no BM Diphenhydramine HCl (Diphenhydramine 25 Mg Capsule) 25 mg PO Q6H PRN PRN PRN Reason: ITCHING Stop: 10/17/20 08:49 Enoxaparin Sodium (Enoxaparin 40 Mg/0.4 Ml Syringe) 40 mg SC DAILY [facility] Hydrocortisone (Hydrocortisone 2.5% Crm) 1 applic TOPICAL TID PRN PRN; Protocol PRN Reason: Discomfort Ibuprofen (Ibuprofen 600 Mg Tablet) 600 mg PO Q6H [facility] Last Admin: 10/17/20 08:03 Dose: 600 mg Documented by: Levetiracetam (Levetiracetam 1,000 Mg Tablet) 1,000 mg PO BID [facility] Last Admin: 10/16/20 21:05 Dose: 1,000 mg Documented by: Nalbuphine HCl (Nalbuphine 10 Mg/Ml Ampul) 5 mg IV Q3H PRN PRN PRN Reason: ITCHING Stop: 10/17/20 08:49 Naloxone HCl (Naloxone 0.4 Mg/Ml Syringe) 0.02 mg IV Q1M PRN PRN Reason: RR <10 and pt unresponsive Ondansetron HCl (Ondansetron 4 Mg/2 Ml Vial) 4 mg IV Q4H PRN PRN PRN Reason: Nausea Last Admin: 10/16/20 11:28 Dose: 4 mg Documented by: Oxycodone HCl (Oxycodone 5 Mg Tablet) 5 - 10 mg PO Q4H PRN PRN PRN Reason: Pain Score 4-10 Prochlorperazine Edisylate (Prochlorperazine 10 Mg/2 Ml Vial) 10 mg IV Q6H PRN PRN PRN Reason: NAUSEA Last Admin: 10/16/20 13:01 Dose: 10 mg Documented by: Senna/Docusate Sodium (Senna/Docusate Sodium 1 Tablet) 0 tablet PO DAILY [facility] Last Admin: 10/16/20 09:25 Dose: 1 tablet Documented by: Simethicone (Simethicone 80 Mg Tablet) 80 mg PO PCHS PRN PRN Reason: Indigestion/stomach pain Sodium Chloride (0.9% Saline Lock 10 Ml Syringe) 5 - 15 ml IV UD PRN PRN Reason: SALINE FLUSH Last Admin: 10/17/20 02:12 Dose: 15 ml Documented by: Zolpidem Tartrate (Zolpidem Tartrate 5 Mg Tablet) 5 mg PO QHS PRN PRN PRN Reason: Insomnia Medical Necessity - Tobacco Use Smoking Status: Never smoker Assessment/Plan POD#1 s/p repeat section. Breast feeding _. Home_
--- NOTE | 2020-10-17 08:41 | DCINST_ITS ---
Discharge Activity: Return to Normal Activity, May not drive while taking narcotic pain medications. May resume sexual activity in: 6 weeks Weight Bearing Status: Weight bearing as tolerated Call your doctor if your incision/area has: Continuous Slow Oozing, Sudden Increased Bleeding, Increased Pain/ Swelling Call your doctor if you observe: Fever of 101 or Higher, Coldness, Increased Pain, Numbness or Tingling, Inability to have a bowel movement, Using more than one pad per hour, Shortness of breath, Calf discomfort Cleanse incision/area with: Soap & Water Additional Instructions: If you experience any of the following, contact your healthcare provider. * Bleeding that soaks a pad every hour for 2 hours * Fever 100.4 or higher * Unrelieved incision or abdominal pain * Swelling, redness, discharge or bleeding from your incision or episiotomy site * Your incision begins to separate * Problems urinating (including inability to urinate or burning while urinating). * Visual changes * Severe headache * Flu-like symptoms * Pain or redness in one of both of your breasts * Pain, warmth, tenderness or swelling in your legs, especially the calf area * Frequent nausea and vomiting * Symptoms of depression or anxiety If you experience any of the following, call 911 or go to the nearest Emergency Room. * Chest pain * Problems breathing * Seizure activity * Partial or complete paralysis of a body part, slurred speech, weakness or drooping of the face, or a sudden inability to walk or hold your balance Allergies/Adverse Reactions: Allergies clarithromycin [From Biaxin] Allergy (Verified 10/16/20 00:09) Hives Medications to take at Discharge RX: Folic Acid 0.8 mg PO DAILY@0800 07/30/18 levetiracetam 1,000 mg tablet 1,000 mg PO BID 09/22/20 vits 75-iron 28 mg-folic acid 800 mcg-omega-3 oral combo pack 1 tab PO DAILY 09/22/20 Follow-Up: Call to make an appointment with your doctor for an incision check in 1-2 weeks. You will also need a 6 week post- follow up appointment. Test results from this visit will be discussed in further detail at your follow- up appointment, if applicable. Please Follow Up With: Addis Brewer DO When: 2 week post op, 6 week Primary Care Physician: Care Physician,No Primary [Primary Care Provider] -
[2020-10-17] MEDS: levETIRAcetam 1,000 MG Tablet 1000 MG PO (09:56)
[2020-10-17] MEDS: Senna/Docusate Sodium 1 Tablet PO (09:57)
[2020-10-17] MEDS: Enoxaparin 40 MG/0.4 ML Syringe SC (10:21)
[2020-10-17 13:20] VITALS: BP 110/65; PULSE 81; RESP 20; TEMP 36.7; O2SAT 97
== END 2020-10-17 14:00 | disposition home or self-care (01) | DRG 787 ==
LOC: WPOUT 02:51 → WP 02:51
PROVIDERS: Admitting Provider Student in an Organized Health Care Education/Training Program; Visit Provider Student in an Organized Health Care Education/Training Program
DX: O34.219 Maternal care for unspecified type scar from previous cesarean delivery (principal); O99.354 Diseases of the nervous system complicating childbirth; G40.909 Epilepsy, unspecified, not intractable, without status epilepticus; O76 Abnormality in fetal heart rate and rhythm complicating labor and delivery; O99.52 Diseases of the respiratory system complicating childbirth; J45.909 Unspecified asthma, uncomplicated; Z3A.39 39 weeks gestation of pregnancy; Z37.0 Single live birth
CPT/HCPCS: 36415; 59025; 59050; 85025; 85027; 86850; 86900; 86901; 99218; J7120; A4216; G0378; J2405

== ENCOUNTER → 2020-11-09 10:20 | Outpatient (CLI) | payer MEDICAID, SELFPAY ==
[2020-09-22 11:54] VITALS: BMI 29.5
[2020-10-16 00:05] VITALS: BMI 31.5
[2020-11-12 15:50] LABS: KEPPRA (LEVETIRACETAM) 19.5 ug/mL (10.0-40.0)
== END ==
DX: G40.309 Generalized idiopathic epilepsy and epileptic syndromes, not intractable, without status epilepticus (principal)
CPT/HCPCS: 36415; 80177

== ENCOUNTER → 2020-11-19 13:39 | Outpatient (CLI) | payer MEDICAID, SELFPAY ==
[2020-10-16 00:05] VITALS: BMI 31.5
[2020-11-26 13:23] LABS: HPV Reflexed? NOT INDICATED
== END ==
PROVIDERS: Visit Provider Student in an Organized Health Care Education/Training Program
DX: Z12.4 Encounter for screening for malignant neoplasm of cervix (principal)
CPT/HCPCS: 88175; G0145

== ENCOUNTER → 2021-05-04 09:57 | Outpatient (CLI) | payer MEDICAID, SELFPAY ==
[2019-06-27 22:21] VITALS: BMI 29.2
[2021-05-08 20:41] LABS: KEPPRA (LEVETIRACETAM) 16.1 ug/mL (10.0-40.0)
== END ==
DX: G40.309 Generalized idiopathic epilepsy and epileptic syndromes, not intractable, without status epilepticus (principal)
CPT/HCPCS: 36415; 80177

== ENCOUNTER 2021-10-31 12:19 | Outpatient (CLI) | payer MEDICAID, SELFPAY ==
[2021-10-31 12:45] LABS: Bacteria 0 SEEN /hpf (None Seen); Mucous, Urine 0 SEEN /hpf (<or=2+); Squamous Epithelial Cells - UA 0 SEEN /hpf (5-10)
[2021-10-31 12:51] LABS: Color, Urine Yellow (Yellow); Glucose, Dipstick Normal (Normal); Ketone-Dipstick Negative (Negative); Leukocyte Esterase-Dipstick 500 /ul (Negative); Nitrite-Dipstick Negative (Negative); Occult Blood-Urine 250 /ul (Negative); Protein-Dipstick 100 mg/dl (Negative); Specific Gravity, Urine 1.015 (1.002-1.030); Urine Bilirubin Dipstick Negative (Negative); Urine Clarity Cloudy (Clear); Urine Urobilinogen Normal (Normal); Urine pH 6.5 (5.0 - 8.0)
[2021-10-31 12:57] LABS: Red Blood Cells-Urine > 100 SEEN /hpf (0-5); White Blood Cells >100 SEEN /hpf (0-5)
== END 2021-10-31 23:59 | disposition home or self-care (01) ==
LOC: LABSPEC 12:21
PROVIDERS: Visit Provider Physician Assistant
DX: R31.9 Hematuria, unspecified (principal)
CPT/HCPCS: 81001; 87086; 87088; 87186

== ENCOUNTER → 2021-12-06 09:48 | Outpatient (CLI) | payer MEDICAID, SELFPAY ==
[2021-12-12 12:15] LABS: KEPPRA (LEVETIRACETAM) 18.5 ug/mL (10.0-40.0)
== END ==
DX: O99.351 Diseases of the nervous system complicating pregnancy, first trimester (principal); G40.909 Epilepsy, unspecified, not intractable, without status epilepticus
CPT/HCPCS: 36415; 80177

== ENCOUNTER → 2021-12-17 | Outpatient (CLI) | payer MEDICAID, SELFPAY ==
[2021-12-17 12:51] LABS: Absolute Lymphocyte Count 1.07 X10^3/uL (0.83-4.51); Absolute Neutrophil Count 3.9 X10^3/uL (2.0-7.7); Basophil# 0.02 X10^3/uL; Basophil% 0.4 % (0-1); Eosinophil# 0.02 X10^3/uL; Eosinophils% 0.4 % (0-5); Hematocrit 36.7 % (37-47); Hemoglobin 12.1 g/dL (12.0-15.0); Lymphocyte # 1.07 X10^3/ul (0.83-4.51); Lymphocyte % 19.6 % (19-41); Mean Corpuscular Hgb 29.7 pg (27.0-32.0); Mean Corpuscular Volume 90.2 fL (81-99); Mean Platelet Vol. 10.7 fl (6.2-12.0); Monocyte# 0.39 X10^3/uL; Monocyte% 7.1 % (0-10); NRBC Flagged by Analyzer 0 % (0-5); Neutrophil # 3.94 X10^3/uL (2.7-7.7); Neutrophil % 72.1 % (47-70); Platelet Count 239 K/mm3 (150-450); RBC Distribution Width CV 12.7 % (11.6-14.6); RBC Distribution Width SD 41.4 fl (35.1-43.9); Red Blood Count 4.07 M/mm3 (4.2-5.4); White Blood Count 5.5 K/mm3 (4.4-11.0)
[2021-12-17 13:41] LABS: HIV - WCH Non-Reactive (Nonreactive); Hepatitis B Surface Antigen Non-Reactive (Nonreactive); Hepatitis C Antibody Non-Reactive (Nonreactive); Rubella IgG Reactive (Nonreactive); Syphilis Antibodies Non-reactive
[2021-12-18 22:06] LABS: Chlamydia By Nucleic Acid AMP Negative (Negative)
[2021-12-19 14:56] LABS: Gonococcus By Nucleic Acid AMP Negative (Negative)
== END | disposition home or self-care (01) ==
LOC: WOBLAB 10:10
PROVIDERS: Visit Provider Student in an Organized Health Care Education/Training Program
DX: Z34.81 Encounter for supervision of other normal pregnancy, first trimester (principal)
CPT/HCPCS: 36415; 85025; 86703; 86762; 86780; 86803; 87086; 87088; 87340; 87491; 87591

== ENCOUNTER 2022-01-21 09:57 | Outpatient (RCR) | payer MEDICAID, SELFPAY ==
[2022-01-27 16:27] LABS: KEPPRA (LEVETIRACETAM) 41.2 ug/mL (10.0-40.0)
== END 2022-01-21 18:00 | disposition home or self-care (01) ==
LOC: LAB 09:57
DX: G40.909 Epilepsy, unspecified, not intractable, without status epilepticus (principal); O99.351 Diseases of the nervous system complicating pregnancy, first trimester; Z3A.00 Weeks of gestation of pregnancy not specified
CPT/HCPCS: 36415; 80177

== ENCOUNTER 2022-03-11 10:18 | Outpatient (RCR) | payer MEDICAID, SELFPAY ==
[2022-03-17 08:32] LABS: KEPPRA (LEVETIRACETAM) 12.3 ug/mL (10.0-40.0)
== END 2022-03-23 02:57 | disposition home or self-care (01) ==
LOC: LAB 10:18
DX: G40.909 Epilepsy, unspecified, not intractable, without status epilepticus (principal); O99.351 Diseases of the nervous system complicating pregnancy, first trimester; Z3A.00 Weeks of gestation of pregnancy not specified
CPT/HCPCS: 36415; 80177

== ENCOUNTER → 2022-04-09 | Outpatient (CLI) | payer MEDICAID, SELFPAY ==
[2022-04-09 14:55] LABS: Absolute Lymphocyte Count 0.89 X10^3/uL (0.83-4.51); Absolute Neutrophil Count 5.6 X10^3/uL (2.0-7.7); Basophil# 0.01 X10^3/uL; Basophil% 0.1 % (0-1); Eosinophil# 0.02 X10^3/uL; Eosinophils% 0.3 % (0-5); Hematocrit 34.1 % (37-47); Hemoglobin 11.4 g/dL (12.0-15.0); Lymphocyte # 0.89 X10^3/ul (0.83-4.51); Lymphocyte % 12.9 % (19-41); Mean Corp Hgb Conc 33.4 g/dL (32-36); Mean Corpuscular Hgb 31.3 pg (27.0-32.0); Mean Corpuscular Volume 93.7 fL (81-99); Mean Platelet Vol. 10.4 fl (6.2-12.0); Monocyte# 0.36 X10^3/uL; Monocyte% 5.2 % (0-10); NRBC Flagged by Analyzer 0 % (0-5); Neutrophil # 5.61 X10^3/uL (2.7-7.7); Neutrophil % 81.2 % (47-70); Platelet Count 223 K/mm3 (150-450); RBC Distribution Width CV 13.1 % (11.6-14.6); RBC Distribution Width SD 44.9 fl (35.1-43.9); Red Blood Count 3.64 M/mm3 (4.2-5.4); White Blood Count 6.9 K/mm3 (4.4-11.0)
[2022-04-09 15:03] LABS: Glucose Challenge Gest 1H 50g 96 mg/dL (70-140)
== END | disposition home or self-care (01) ==
LOC: WOBLAB 13:48
PROVIDERS: Visit Provider Student in an Organized Health Care Education/Training Program
DX: Z34.82 Encounter for supervision of other normal pregnancy, second trimester (principal)
CPT/HCPCS: 36415; 82950; 85025

== ENCOUNTER 2022-04-18 11:14 | Outpatient (RCR) | payer MEDICAID, SELFPAY ==
[2022-04-23 11:57] LABS: KEPPRA (LEVETIRACETAM) 11.1 ug/mL (10.0-40.0)
== END 2022-04-18 18:00 | disposition home or self-care (01) ==
LOC: LAB 11:14
DX: O99.351 Diseases of the nervous system complicating pregnancy, first trimester (principal); G40.909 Epilepsy, unspecified, not intractable, without status epilepticus; Z3A.00 Weeks of gestation of pregnancy not specified
CPT/HCPCS: 36415; 80177

== ENCOUNTER 2022-05-07 10:35 | Outpatient (RCR) | payer MEDICAID, SELFPAY ==
[2022-05-10 11:09] LABS: KEPPRA (LEVETIRACETAM) 12.8 ug/mL (10.0-40.0)
== END 2022-05-07 18:00 | disposition home or self-care (01) ==
LOC: LAB 10:35
DX: O99.351 Diseases of the nervous system complicating pregnancy, first trimester (principal); G40.909 Epilepsy, unspecified, not intractable, without status epilepticus; Z3A.00 Weeks of gestation of pregnancy not specified
CPT/HCPCS: 36415; 80177

== ENCOUNTER → 2022-06-10 | Outpatient (CLI) | payer MEDICAID, SELFPAY ==
--- NOTE | 2022-06-10 13:03 | VDLE_ITS ---
Reason For Study: localized swellling RIGHT LEFT GSV is normal. CFV is compressible, spontaneous, phasic, CFV is compressible, spontaneous, phasic, competent, and demonstrates normal competent and demonstrates normal augmentation. augmentation. FV is compressible, spontaneous, phasic, competent and demonstrates normal augmentation. POP V is compressible, spontaneous, phasic, competent and demonstrates normal augmentation. T/P Trunk is compressible. PTV is compressible. RT PerV is compressible. RT varicosities at medial knee are noncompresible with hyper and hypo echogenicities noted in lumen. Procedure This is a venous duplex using B-mode, color flow and spectral Doppler. Exam performed in department. The exam was diagnostic. A preliminary report was called and/or faxed to Dr. Blaze Brewer fax and voicmail @ 1:35 pm. VL/Venous Duplex US, Unilateral Interpretation Summary Acute superficial vein thrombosis is noted varicosities adjacent to the right k nee Ordering Physician: Blaze Brewer Referring Physician: NO PCP Performed By: Mony Carpenter, SAURABH, RVT
== END | disposition home or self-care (01) ==
LOC: CVS 13:00
PROVIDERS: Referring Provider Obstetrics & Gynecology; Visit Provider Obstetrics & Gynecology
DX: O22.33 Deep phlebothrombosis in pregnancy, third trimester (principal); I82.401 Acute embolism and thrombosis of unspecified deep veins of right lower extremity; Z3A.33 33 weeks gestation of pregnancy
CPT/HCPCS: 93971

== ENCOUNTER 2022-06-21 10:09 | Outpatient (RCR) | payer MEDICAID, SELFPAY ==
[2022-06-24 17:51] LABS: KEPPRA (LEVETIRACETAM) 11.7 ug/mL (10.0-40.0)
== END 2022-06-21 18:00 | disposition home or self-care (01) ==
LOC: LAB 10:09
DX: O99.351 Diseases of the nervous system complicating pregnancy, first trimester (principal); G40.909 Epilepsy, unspecified, not intractable, without status epilepticus; Z3A.00 Weeks of gestation of pregnancy not specified
CPT/HCPCS: 36415; 80177

== ENCOUNTER → 2022-06-30 | Outpatient (CLI) | payer MEDICAID, SELFPAY | END | disposition home or self-care (01) | LOC: LABSPEC 12:13 | PROVIDERS: Visit Provider Student in an Organized Health Care Education/Training Program | DX: Z36.85 Encounter for antenatal screening for Streptococcus B (principal) | CPT/HCPCS: 87077; 87081; 87186 ==

== ENCOUNTER → 2022-10-28 | Outpatient (CLI) | payer MEDICAID, SELFPAY ==
[2022-10-28 12:22] LABS: Absolute Lymphocyte Count 1.92 X10^3/uL (0.83-4.51); Absolute Neutrophil Count 1.8 X10^3/uL (2.0-7.7); Basophil# 0.03 X10^3/uL; Basophil% 0.7 % (0-1); Eosinophil# 0.07 X10^3/uL; Eosinophils% 1.6 % (0-5); Hematocrit 42.2 % (37-47); Hemoglobin 13.5 g/dL (12.0-15.0); Lymphocyte # 1.92 X10^3/ul (0.83-4.51); Lymphocyte % 45.2 % (19-41); Mean Corpuscular Hgb 29.4 pg (27.0-32.0); Mean Corpuscular Volume 91.9 fL (81-99); Mean Platelet Vol. 10.2 fl (6.2-12.0); Monocyte# 0.45 X10^3/uL; Monocyte% 10.6 % (0-10); NRBC Flagged by Analyzer 0 % (0-5); Neutrophil # 1.77 X10^3/uL (2.7-7.7); Neutrophil % 41.7 % (47-70); Platelet Count 265 K/mm3 (150-450); RBC Distribution Width SD 40.7 fl (35.1-43.9); Red Blood Count 4.59 M/mm3 (4.2-5.4); White Blood Count 4.3 K/mm3 (4.4-11.0)
[2022-10-28 12:37] LABS: ALB/GLOB Ratio 1.1 RATIO (0.9-2.4); AST(SGOT) 12 U/L (15-37); Alanine Aminotransfer ALT/SGPT 24 U/L (13-56); Alkaline Phosphatase 134 U/L (45-117); Anion Gap 6 (5-15); BUN 19 mg/dL (7-18); BUN/Creat Ratio 21.1 RATIO (10-20); Calcium,Total 9.7 mg/dL (8.5-10.1); Chloride 107 mmol/L (98-107); EST Glomerular Filtration Rate 80 mL/min (>60); Est Glom Filt Rate - Afr Amer 97 mL/min (>60); Globulin 3.6 g/dL (2.2-4.2); Glucose 93 mg/dL (74-106); Potassium 4.1 mmol/L (3.5-5.1); Protein, Total 7.6 g/dL (6.4-8.2); Sodium Level 141 mmol/L (136-145)
[2022-10-30 17:22] LABS: KEPPRA (LEVETIRACETAM) 19.9 ug/mL (10.0-40.0)
== END | disposition home or self-care (01) ==
LOC: LAB 11:42
PROVIDERS: Referring Provider Psychiatry & Neurology Neurology; Visit Provider Psychiatry & Neurology Neurology
DX: G40.909 Epilepsy, unspecified, not intractable, without status epilepticus (principal)
CPT/HCPCS: 36415; 80053; 80177; 85025

== ENCOUNTER 2023-10-02 10:23 | Outpatient (RCR) | payer MEDICAID, SELFPAY ==
[2023-10-05 15:08] LABS: KEPPRA (LEVETIRACETAM) 11.7 ug/mL (10.0-40.0)
== END 2023-10-22 18:00 | disposition home or self-care (01) ==
LOC: LAB 10:23
PROVIDERS: Referring Provider Psychiatry & Neurology Neurology; Visit Provider Psychiatry & Neurology Neurology
DX: G40.909 Epilepsy, unspecified, not intractable, without status epilepticus (principal)
CPT/HCPCS: 36415; 80177

== ENCOUNTER 2023-11-20 10:12 | Outpatient (RCR) | payer MEDICAID, SELFPAY ==
[2023-11-23 09:07] LABS: KEPPRA (LEVETIRACETAM) 9.9 ug/mL (10.0-40.0)
== END 2023-11-22 01:12 | disposition home or self-care (01) ==
LOC: LAB 10:12
PROVIDERS: Referring Provider Psychiatry & Neurology Neurology; Visit Provider Psychiatry & Neurology Neurology
DX: G40.909 Epilepsy, unspecified, not intractable, without status epilepticus (principal)
CPT/HCPCS: 36415; 80177

== ENCOUNTER 2024-01-06 10:16 | Outpatient (RCR) | payer MEDICAID, SELFPAY | END 2024-01-06 19:00 | disposition home or self-care (01) | LOC: PT 10:16 | DX: O99.891 Other specified diseases and conditions complicating pregnancy (principal); N94.9 Unspecified condition associated with female genital organs and menstrual cycle; Z3A.22 22 weeks gestation of pregnancy ==

== ENCOUNTER 2024-03-03 10:27 | Outpatient (RCR) | payer MEDICAID, SELFPAY ==
[2024-03-07 17:07] LABS: KEPPRA (LEVETIRACETAM) 13.7 ug/mL (10.0-40.0)
== END 2024-03-23 18:00 | disposition home or self-care (01) ==
LOC: LAB 10:27
PROVIDERS: Referring Provider Psychiatry & Neurology Neurology; Visit Provider Psychiatry & Neurology Neurology
DX: G40.909 Epilepsy, unspecified, not intractable, without status epilepticus (principal)
CPT/HCPCS: 36415; 80177

== ENCOUNTER 2024-04-13 10:53 | Outpatient (RCR) | payer MEDICAID, SELFPAY ==
[2024-04-15 16:09] LABS: KEPPRA (LEVETIRACETAM) 11.6 ug/mL (10.0-40.0)
== END 2024-04-13 18:00 | disposition home or self-care (01) ==
LOC: LAB 10:53
PROVIDERS: Referring Provider Psychiatry & Neurology Neurology; Visit Provider Psychiatry & Neurology Neurology
DX: G40.909 Epilepsy, unspecified, not intractable, without status epilepticus (principal)
CPT/HCPCS: 36415; 80177